=== PATIENT | male | born 1965 | race Caucasian/White ===

== ENCOUNTER → 2016-10-20 | Outpatient (CLI) | payer OTHER ==
--- NOTE | 2016-10-20 11:06 | XR ---
EXAMINATION TYPE: 2 views bilateral forearms. 4 views bilateral wrists. DATE OF EXAM: 10/20/2016 COMPARISON: NONE HISTORY: 50-year-old male complaining of numbness in both arms and wrists for one week, tenosynovitis . FINDINGS: Forearms: No elevation of the fat pads at the elbows. No acute fracture. No periostitis or osteolysis. No soft tissue abnormality identified. Wrist: There is minimal osteoarthritic change at the base of the thumbs on both sides. The radiocarpal and d istal radioulnar joints as well as the midcarpal compartments appear intact. No acute fracture, sublu xation, or dislocation. IMPRESSION: Bilateral forearms and wrists without acute osseous abnormality seen. Minimal degenerative spurring a t the base of the thumbs.
== END | disposition home or self-care (01) ==
LOC: RADXRMAIN 10:26
PROVIDERS: ATTEND Emergency Medicine
DX: M25.841 Other specified joint disorders, right hand (principal); M25.842 Other specified joint disorders, left hand; M65.832 Other synovitis and tenosynovitis, left forearm; M77.12 Lateral epicondylitis, left elbow; M77.11 Lateral epicondylitis, right elbow

== ENCOUNTER 2017-02-04 10:11 | Day surgery (SDC) | payer BC ==
[2017-01-28 10:46] VITALS: BMI 28.1
--- NOTE | 2017-02-03 22:01 | HP ---
HISTORY AND PHYSICAL CHIEF COMPLAINT: Left hand pain and numbness. HISTORY OF PRESENT ILLNESS: The patient is a 51-year-old male who presents with progressive left hand pain and numbness that has worsened over the past 6 to 7 months. He notes numbness involving his thumb, index, middle, and ring finger. He notes weakness with gripping and grasping. He is having night symptoms. He has tried previous bracing and anti- inflammatories with only partial temporary relief. PAST MEDICAL HISTORY: Otherwise negative. PAST SURGICAL HISTORY: Significant for hernia repair and recent right carpal tunnel release. CURRENT MEDICATIONS: None. ALLERGIES: He denies drug allergies. FAMILY HISTORY: Negative. SOCIAL HISTORY: Negative for current tobacco or alcohol use. REVIEW OF SYSTEMS: Sixteen point review of systems otherwise reviewed and is noncontributory. PHYSICAL EXAMINATION: On examination, the patient is approximately 5 foot 8, 185 pounds, of mesomorphic habitus. HEENT exam is nonfocal. Neck is supple. He is nontender about the left shoulder and elbow. On examination of his left wrist, he has a positive carpal tunnel compression test. Tinel's is positive over the left carpal canal. Light touch is diminished diffusely in the left ring finger and and thumb. Adductor pollicis brevis strength is 4/5 on the left. EMG report showed median motor latency of the carpal canal, 6.45 on the left, with sensor latency 4.75. IMPRESSION: Left carpal tunnel syndrome, symptomatic. RECOMMENDATIONS: I talked to the patient at length regarding his treatment options. At this point, he is having persistence/worsening of symptoms despite conservative measures. After thorough discussion, he opts to proceed with surgery. We will plan to proceed with left carpal tunnel release, likely as an outpatient procedure, utilizing local anesthetic and IV sedation. Risks and benefits were discussed at length in layman's terms. MMODL / IJN: [id number] /
[~2017-02-04 10:11] MED LIST: HYDROmorphone 0.5 MG/0.5 ML SYRINGE IVP PRN; LACTATED RINGERS 1,000 ML IV SCH; ONDANSETRON 4 MG/2 ML VIAL IVP PRN; ceFAZolin IN SWFI 2 GM/20 ML SYRINGE IVP ONE
[2017-02-04 10:26] VITALS: TEMP 97.9
[2017-02-04] MEDS ORDERED: LIDOCAINE 1% 20 ML VIAL (10MG/ML) FOR IV START INTRADERMA ONE (10:31)
[2017-02-04] MEDS ORDERED: BUPIVACAINE (PF) 0.25% 30 ML VIAL SQ ONE ×2 (11:03→11:22)
[2017-02-04] MEDS ORDERED: MIDAZOLAM 2 MG/2 ML VIAL ONE (11:09)
[2017-02-04] MEDS ORDERED: PROPOFOL 10 MG/ML 20 ML VIAL IV ONE (11:09)
[2017-02-04] MEDS ORDERED: fentaNYL (PF) 50 MCG/ML 2 ML AMP ONE (11:09)
--- NOTE | 2017-02-04 11:42 | P.OP ---
Date of Procedure: 02/04/17 Preoperative Diagnosis: left carpal tunnel syndrome-symptomatic Postoperative Diagnosis: Same Procedure(s) Performed: Left carpal tunnel release Anesthesia: MAC, local Surgeon: Lucas Mulligan Estimated Blood Loss (ml): 1 Pathology: none sent Condition: stable Disposition: PACU Indications for Procedure: The patient is a 51-year-old gentleman who presents with progressive left hand numbness secondary to carpal tunnel syndrome despite conservative measures. A discussion of the risks and benefits of continued conservative measures versus operative intervention was made with patient. He opted to proceed with surgery. Operative risks to include infection, neurovascular injury, development of blood clots, possible incomplete resolution of symptoms, possible recurrence of symptoms and need for subsequent procedures was discussed. Informed consent was obtained. Operative Findings: As below Description of Procedure: The patient was brought to the operating room, and after induction of IV sedation the left upper extremity was prepped and draped in normal fashion. The tourniquet was inflated to 50 mmHg. The proposed incision site was outlined skin marker in line with the radial aspect the fourth ray extending from the volar wrist crease distally 2-1/2 cm. 10 mL of quarter percent plain Marcaine was injected. The skin incision was then made. The skin was incised sharply. The cutaneous tissues were divided sharply. The superficial palmar fascia was identified and split in line with the skin incision. The transverse carpal ligament was identified and transected under visualization distally to level the palmar fat pad. Proximally it was taken the level of the volar wrist crease. A plane above and below the transverse carpal ligament was then bluntly developed with tenotomies. The confluence of the distal forearm fascia and the transverse carpal ligament was then transected under direct visualization proximally with the tines pointed in the ulnar direction. I felt I had adequate proximal release. Neural lysis was not performed. The wound was irrigated normal saline. The skin was reapproximated with simple 3-0 nylon sutures. A sterile dressing was applied. The tourniquet was deflated with less than 15 minutes total tourniquet time. The patient was awoken from sedation and transferred to recovery room in good condition. Blood loss was estimated at 1 mL. No complications were incurred. Sponge and needle counts were correct at the end the case.
[2017-02-04 11:47] VITALS: RESP 18
[2017-02-04 12:22] VITALS: BP 113/76; PULSE 67
== END 2017-02-04 12:35 | disposition home or self-care (01) ==
LOC: OR 10:11
PROVIDERS: ATTEND Orthopaedic Surgery
DX: G56.02 Carpal tunnel syndrome, left upper limb (principal)
CPT/HCPCS: 64721; J2250; J2405; J3010; J2704

== ENCOUNTER → 2018-08-11 | Outpatient (CLI) | payer BC ==
[2018-08-11 17:17] LABS: Basophils % (A) 0 %; Eosinophils # (A) 0.1 k/uL (0-0.7); Eosinophils % (A) 2 %; HCT 46.5 % (39.0-53.0); HGB 15.5 gm/dL (13.0-17.5); Lymphocytes # (A) 1.4 k/uL (1.0-4.8); Lymphocytes % (A) 18 %; MCH 30.1 pg (25.0-35.0); MCHC 33.2 g/dL (31.0-37.0); MCV 90.6 fL (80.0-100.0); Mean Platelet Volume 7.6; Monocytes # (A) 0.5 k/uL (0-1.0); Monocytes % (A) 7 %; Neutrophils # (A) 5.5 k/uL (1.3-7.7); Neutrophils % (A) 72 %; Platelet Count 182 k/uL (150-450); RBC 5.13 m/uL (4.30-5.90); RDW 13.2 % (11.5-15.5); WBC 7.7 k/uL (3.8-10.6)
[2018-08-11 19:34] LABS: Erythrocyte Sedimentation Rate 2 mm/hr (0-15)
[2018-08-11 22:17] LABS: Rheumatoid Factor 6 IU/mL (0-15)
[2018-08-11 22:32] LABS: C Reactive Protein <0.4 mg/dL (0.0-0.8); Uric Acid 5.6 mg/dL (3.7-8.7)
[2018-08-11 22:52] LABS: Anti-DNA, DS unit <1.0 IU/mL; DNA Double-Stranded NEGATIVE (NEGATIVE)
[2018-08-14 11:22] LABS: HLA B27 NEGATIVE
== END | disposition home or self-care (01) ==
LOC: LABWHC1 17:02
PROVIDERS: ATTEND Orthopaedic Surgery
DX: M25.50 Pain in unspecified joint (principal)
CPT/HCPCS: 36415; 84550; 85025; 85652; 86038; 86140; 86225; 86431; 86812

== ENCOUNTER → 2019-06-13 | Outpatient (CLI) | payer OTHER | END | disposition home or self-care (01) | LOC: RADNMMAIN 09:05 | DX: Z53.9 Procedure and treatment not carried out, unspecified reason (principal) ==

== ENCOUNTER → 2019-06-15 | Outpatient (CLI) | payer OTHER ==
--- NOTE | 2019-06-15 10:32 | P.STRESS ---
- Stress Test Note Stress Test Results/Findings: Exam Performed: stress test Exam Date: 06/15/19 Reason for Exam: ABN ECG Height: 5 ft 8 in Weight: 93 kg Protocol: GRANT Stage: 3 Duration of Exercise: 9:00 Resting Heart Rate: 90 Resting Blood Pressure: 154/111 Maximum Achieved Heart Rate: 148 Maximum Achieved Blood Pressure: 198/75 85% PMHR: 143 100% PMHR: 168 METS: 10.3 Technologist Comment: Stress Test Results/Findings: This is a 53-year-old gentleman being evaluated for cardiac status because of abnormal EKG and family history of ischemic heart disease. Stress data: Baseline EKG showed a sinus rhythm with normal MI interval, QRS duration with T-wave inversions in inferior leads. Patient walked on the Grant protocol for 9 minutes achieving a maximum heart rate of 148 with a blood pressure 196/87. His blood pressure at rest was 154/111 with a pulse of 90. EKGs taken during and after exercise showed more prominence ST-T abnormalities in inferolateral leads, compared to the baseline. Patient did not experience any chest pain. No arrhythmias are noted. Final impression: #1. Nondiagnostic stress test because of baseline EKG abnormalities. #2. Patient did not experience any chest pain #3. No arrhythmias are noted. #4. Patient's exercise capacity is fair. #5. Patient does have hypertension which could be situational.
== END | disposition home or self-care (01) ==
LOC: RADNMMAIN 07:42
DX: R94.31 Abnormal electrocardiogram [ECG] [EKG] (principal)
CPT/HCPCS: 93017

== ENCOUNTER 2019-09-11 05:53 | Observation (INO) | payer OTHER, BC ==
[2019-09-11] MEDS ORDERED: SODIUM CHLORIDE 0.9% 1,000 ML IV STA ×2 (06:09)
--- NOTE | 2019-09-11 06:15 | ED ---
Chest Pain HPI - General Chief Complaint: Chest Pain Stated Complaint: Chest Pain Time Seen by Provider: 09/11/19 06:00 Source: patient, RN notes reviewed, old records reviewed Mode of arrival: ambulatory Limitations: no limitations - History of Present Illness Initial Comments: Patient has a 53-year-old male with a history of recent cervical spinal fusion on June 23 presents emergency Department today with waking up with onset of sharp stabbing chest pain. He reports that he had a sharp episode of chest pain that woke him up this morning and had another duller episode upon arrival to the emergency department. He states while he has been in the exam room the chest pain has now diminished. Patient states that he is not on any blood thinning me dications. He reports that he has had no significant shortness of breath or coughing. Patient states that he has a family history of heart disease, no prior personal history. Since his neck surgery he's noticed that he's had a slightly increased heart rate and blood pressure is been mildly elevated. He wonders if this is due to stimulation of the vagus nerve post surgery. Patient states no nausea or vomiting. Denies any abdominal pain. He is a nonsmoker. - Related Data Home Medications Medication Instructions Recorded Confirmed Ascorbic Acid [Vitamin C] 500 mg PO DAILY 09/11/19 09/11/19 Bc Powder 1 pack PO DAILY PRN 09/11/19 09/11/19 Allergies Allergy/AdvReac Type Severity Reaction Status Date / Time No Known Allergies Allergy Verified 09/11/19 07:21 Review of Systems ROS Statement: Those systems with pertinent positive or pertinent negative responses have been documented in the HPI. ROS Other: All systems not noted in ROS Statement are negative. EKG Findings - EKG Comments: EKG Findings:: EKG performed at 6:01 AM shows normal sinus rhythm normal EKG. Ventricular rate of 67 bpm.. Intervals 126 ms. QRS duration is 116 ms. QT QTc is 404/426. Past Medical History Past Medical History: No Reported History History of Any Multi-Drug Resistant Organisms: None Reported Past Surgical History: Hernia Repair, Orthopedic Surgery Additional Past Surgical History / Comment(s): [facility], neck fusion 2019 Past Anesthesia/Blood Transfusion Reactions: No Reported Reaction Past Psychological History: No Psychological Hx Reported Past Alcohol Use History: Daily Past Drug Use History: None Reported - Past Family History Mother Family Medical History: No Reported History General Exam - General Exam Comments Initial Comments: This is a 53-year-old male. Alert and oriented 3. No significant distress. Limitations: no limitations General appearance: alert, in no apparent distress Head exam: Present: atraumatic, normocephalic, normal inspection Eye exam: Present: normal appearance, PERRL, EOMI. Absent: scleral icterus, conjunctival injection, periorbital swelling ENT exam: Present: normal exam, mucous membranes moist Neck exam: Present: normal inspection. Absent: tenderness, meningismus, lymphadenopathy Respiratory exam: Present: normal lung sounds bilaterally. Absent: respiratory distress, wheezes, rales, rhonchi, stridor Cardiovascular Exam: Present: regular rate, normal rhythm, normal heart sounds. Absent: systolic murmur, diastolic murmur, rubs, gallop, clicks GI/Abdominal exam: Present: soft, normal bowel sounds. Absent: distended, tenderness, guarding, rebound, rigid Extremities exam: Present: normal inspection, full ROM, normal capillary refill. Absent: tenderness, pedal edema, joint swelling, calf tenderness Back exam: Present: normal inspection Neurological exam: Present: alert, oriented X3, CN II-XII intact Psychiatric exam: Present: normal affect, normal mood Skin exam: Present: warm, dry, intact, normal color. Absent: rash Course Vital Signs 09/11/19 09/11/19 05:58 07:05 Temperature 98.6 F Pulse Rate 66 72 Respiratory 16 18 Rate Blood Pressure 153/57 113/94 O2 Sat by Pulse 98 97 Oximetry Chest Pain [facility] Patient is a 53-year-old male presents today with onset of chest pain that woke him up this morning. Patient reports he had indeterminate stress test done in June. He does take aspirin daily. Upon arrival he reports chest pain has improved. Patient initial lab work including troponin are negative. With recent history surgical history Patient had CT chest angiogram which is negative for PE. At this time Patient will be admitted at this time for a consult to cardiology for concern for unstable angina. Disposition Clinical Impression: Unstable angina Disposition: ADMITTED IP TO THIS HOSP Condition: Good Instructions (If sedation given, give patient instructions): Chest Pain (ED) Is patient prescribed a controlled substance at d/c from ED?: No Referrals: [facility],Clinic [Primary Care Provider] - 1-2 days Time of Disposition: 07:55
[2019-09-11 06:19] LABS: Basophils # (A) 0.1 k/uL (0-0.2); Basophils % (A) 1 %; Eosinophils # (A) 0.2 k/uL (0-0.7); Eosinophils % (A) 3 %; HCT 45.3 % (39.0-53.0); HGB 14.8 gm/dL (13.0-17.5); Lymphocytes % (A) 25 %; MCH 28.8 pg (25.0-35.0); MCHC 32.7 g/dL (31.0-37.0); Mean Platelet Volume 8.2; Monocytes # (A) 0.5 k/uL (0-1.0); Monocytes % (A) 6 %; Neutrophils % (A) 63 %; Platelet Count 188 k/uL (150-450); RBC 5.15 m/uL (4.30-5.90); RDW 13.4 % (11.5-15.5); WBC 7.9 k/uL (3.8-10.6)
[2019-09-11 06:28] LABS: ALT 19 U/L (4-49); AST 24 U/L (17-59); African American GFR (CKD) >90 (>60 ml/min/1.73 sqM); Albumin 4.3 g/dL (3.5-5.0); Alkaline Phosphatase 92 U/L (38-126); Amylase 62 U/L (30-110); Anion Gap 7 mmol/L; Blood Urea Nitrogen 15 mg/dL (9-20); Calcium 9.1 mg/dL (8.4-10.2); Carbon Dioxide 25 mmol/L (22-30); Chloride 107 mmol/L (98-107); Glucose 100 mg/dL (74-99); Magnesium 1.9 mg/dL (1.6-2.3); Non-African American GFR(CKD) >90 (>60 ml/min/1.73 sqM); Potassium 4.3 mmol/L (3.5-5.1); Sodium 139 mmol/L (137-145); Total Bilirubin 0.5 mg/dL (0.2-1.3); Total Protein 7.3 g/dL (6.3-8.2)
[2019-09-11 06:32] LABS: D-Dimer 0.54 mg/L FEU (<0.60); Partial Thromboplastin Time 24.8 sec (22.0-30.0); Prothrombin Time 10.1 sec (9.0-12.0)
--- NOTE | 2019-09-11 06:33 | XR ---
EXAMINATION TYPE: XR chest 2V DATE OF EXAM: 09/11/2019 COMPARISON: NONE HISTORY: Chest pain. TECHNIQUE: Frontal and lateral views of the chest are obtained. FINDINGS: There is some chronic parenchymal changes bilaterally without suspicious focal air space o pacity, pleural effusion, or pneumothorax seen. The cardiac silhouette size is within normal limits. Partial visualization of surgical change to the cervical thoracic spine. IMPRESSION: No acute cardiopulmonary process.
--- NOTE | 2019-09-11 07:25 | CT ---
EXAMINATION TYPE: CT chest angio for PE DATE OF EXAM: 09/11/2019 COMPARISON: Chest x-ray earlier today. HISTORY: PE suspected. Shortness of breath and chest pain. CT DLP: 512.7 mGycm. Automated Exposure Control for Dose Reduction was Utilized. CONTRAST: CTA scan of the thorax is performed without and with IV Contrast, patient injected with 100 ml mL of Isovue 370, pulmonary embolism protocol. MIP Images are created on CT scanner and reviewed. FINDINGS: LUNGS: The lungs are grossly clear, there is no concerning parenchymal mass or nodule identified. T here is no pleural effusion or pneumothorax seen. The tracheobronchial tree is patent. MEDIASTINUM: There is satisfactory enhancement of the pulmonary artery and its branches, there is no CT evidence for pulmonary embolism. Satisfactory enhancement of the thoracic aorta without aneurysm or dissection. There are no greater than 1 cm hilar or mediastinal lymph nodes. No cardiomegaly or pericardial effusion is seen. OTHER: Slight underlying scoliotic curvature. Partial visualization of surgical change in the upper t horacic spine. Small degree of subareolar bilateral gynecomastia. IMPRESSION: No CTA evidence for acute pulmonary embolism. No suspicious acute pulmonary process.
[2019-09-11] MEDS ORDERED: HEPARIN SODIUM,PORCINE 5,000 UNIT/ML 1 ML VIAL IV ONE (07:51)
[2019-09-11] MEDS ORDERED: NITROGLYCERIN SL TABS 0.4 MG TAB SUBLINGUAL PRN (07:51)
[2019-09-11] MEDS ORDERED: HEPARIN SOD,PORK IN 0.45% NACL 25,000 UNIT in 0.45% NACL 1 250ML.BAG IV SCH (08:00)
--- NOTE | 2019-09-11 13:12 | P.CRDCN ---
History of Present Illness History of present illness: HISTORY OF PRESENTING ILLNESS This is a pleasant 53-year-old male past medical history significant for gastroesophageal reflux disease.. He recently established in the office with Dr. Hay secondary to an inconclusive exercise stress test. In June 2019 he underwent an exercise stress test for preoperative evaluation that was inconclusive secondary to baseline EKG abnormalities however he exercised for f 9 minutes. At 9 minutes of exercise he had no arrhythmias or chest discomfort. He is scheduled to undergo a different modality of stress testing in the office September [address] Hay. We have been asked to see in consultation for chest pain. He states he woke up this morning while driving experienced discomfort in his chest described as sharp and stabbing pain in the left precordial region with radiation at times to the midsternal region. The pain was persistent and slowly start to become dull in nature. Was not respirophasic here not related to activity or exertion. He had no associated shortness of breath, dizziness, palpitations, nausea, vomiting or diaphoresis. DIAGNOSTICS EKG reveals sinus mechanism with nonspecific T-wave abnormalities in inferior leads. Chest xray negative for an acute cardiopulmonary process. Laboratory reviewed, CBC unremarkable, d-dimer 0.54, sodium 139, potassium 4.3, creatinine 0.91, cardiac enzymes negative 2, NT proBNP 29. He takes no daily cardiac medications. REVIEW OF SYSTEMS At the time of my exam: CONSTITUTIONAL: Denies fever or chills. CARDIOVASCULAR: Denies chest pain, shortness of breath, orthopnea, PND or palpitations. RESPIRATORY: Denies cough. GASTROINTESTINAL: Denies abdominal pain, diarrhea, constipation, nausea or vomiting. MUSCULOSKELETAL: Denies myalgias. NEUROLOGIC: Denies numbness, tingling or weakness. ENDOCRINE: Denies fatigue, weight change, polydipsia or polyurina. GENITOURINARY: Denies burning, hematuria or urgency with micturation. HEMATOLOGIC: Denies history of anemia or bleeding. PHYSICAL EXAMINATION Blood pressure 149/97 heart rate 47 afebrile and maintaining oxygen saturation on room air. CONSTITUTIONAL: No apparent distress. HEENT: Head is normocephalic. Pupils are equal, round. Sclerae anicteric. Mucous membranes of the mouth are moist. No JVD. No carotid bruit. Neck brace in place. CHEST EXAMINATION: Lungs are clear to auscultation. No chest wall tenderness is noted on palpation or with deep breathing. HEART EXAMINATION: Regular rate and rhythm. S1, S2 heard. No murmurs, gallops or rub. ABDOMEN: Soft, nontender. Positive bowel sounds. EXTREMITIES: 2+ peripheral pulses, no lower extremity edema and no calf tenderness. NEUROLOGIC EXAMINATION: Patient is awake, alert and oriented x3. ASSESSMENT Chest pain, atypical. An acute coronary event has been ruled out. PLAN Pain is atypical to be related to angina. An acute coronary event has been ruled out. Discontinue heparin infusion. We will proceed with a dobutamine stress echocardiogram tomorrow. Thank you kindly for this consultation. Nurse Practitioner note has been reviewed, I agree with a documented findings and plan of care. Patient was seen and examined. Past Medical History Past Medical History: GERD/Reflux, Osteoarthritis (OA) Additional Past Medical History / Comment(s): Pt states since cervical surgery in Jun, 2019 he has had some upper abdominal pain/balance issues, vertigo. History of Any Multi-Drug Resistant Organisms: None Reported Past Surgical History: Hernia Repair, Orthopedic Surgery Additional Past Surgical History / Comment(s): 06/24/19 cervical fusion C2-T2 with hardware done at [facility]-limited ROM with neck, bilateral carpal tunnel releases, L hand thumb tendon surgery, umbilical hernia repair, colonoscopy Past Anesthesia/Blood Transfusion Reactions: No Reported Reaction Smoking Status: Never smoker - Past Family History Mother Family Medical History: Cancer Additional Family Medical History / Comment(s): Pacemaker, colon cancer, smoker. Medications and Allergies Home Medications Medication Instructions Recorded Confirmed Type Ascorbic Acid [Vitamin C] 500 mg PO DAILY 09/11/19 09/11/19 History Bc Powder 1 pack PO DAILY PRN 09/11/19 09/11/19 History Allergies Allergy/AdvReac Type Severity Reaction Status Date / Time No Known Allergies Allergy Verified 09/11/19 07:21 Physical Exam Vitals: Vital Signs Temp Pulse Resp BP Pulse Ox 09/11/19 12:46 79 14 98 09/11/19 10:14 77 18 149/97 96 09/11/19 07:05 72 18 113/94 97 09/11/19 05:58 98.6 F 66 16 153/57 98 Intake and Output 09/10/19 09/11/19 09/11/19 22:59 06:59 14:59 Other: Weight 90.718 kg 90.718 kg Results 09/11/19 06:11 09/11/19 06:11 Cardiac Enzymes 09/11/19 09/11/19 09/11/19 Range/Units 06:11 06:11 09:24 AST 24 (17-59) U/L Troponin I <0.012 <0.012 (0.000-0.034) ng/mL Coagulation 09/11/19 Range/Units 06:11 PT 10.1 (9.0-12.0) sec APTT 24.8 (22.0-30.0) sec CBC 09/11/19 Range/Units 06:11 WBC 7.9 (3.8-10.6) k/uL RBC 5.15 (4.30-5.90) m/uL Hgb 14.8 (13.0-17.5) gm/dL Hct 45.3 (39.0-53.0) % Plt Count 188 (150-450) k/uL Comprehensive Metabolic Panel 09/11/19 Range/Units 06:11 Sodium 139 (137-145) mmol/L Potassium 4.3 (3.5-5.1) mmol/L Chloride 107 (98-107) mmol/L Carbon Dioxide 25 (22-30) mmol/L BUN 15 (9-20) mg/dL Creatinine 0.91 (0.66-1.25) mg/dL Glucose 100 H (74-99) mg/dL Calcium 9.1 (8.4-10.2) mg/dL AST 24 (17-59) U/L ALT 19 (4-49) U/L Alkaline Phosphatase 92 (38-126) U/L Total Protein 7.3 (6.3-8.2) g/dL Albumin 4.3 (3.5-5.0) g/dL Current Medications Generic Name Dose Route Start Last Admin Trade Name Freq PRN Reason Stop Dose Admin Aspirin 81 mg 09/12/19 09:00 Aspirin PO DAILY WILBERT Sodium Chloride 1,000 mls @ 100 mls/hr 09/11/19 06:09 09/11/19 06:21 Saline 0.9% IV 09/11/19 16:08 100 mls/hr .Q10H STA Administration Dobutamine HCl/Dextrose 500 mg 250 mls @ 27.215 mls/hr 09/12/19 06:00 / IV Solution IV 09/12/19 15:11 .Q9H12M ONE Protocol 10 MCG/KG/MIN Nitroglycerin 0.4 mg 09/11/19 07:51 Nitrostat SUBLINGUAL Q5M PRN Chest Pain Intake and Output 09/10/19 09/11/19 09/11/19 22:59 06:59 14:59 Other: Weight 90.718 kg 90.718 kg Patient Weight 09/12/19 06:59 Weight 90.718 kg 09/11/19 06:11 09/11/19 06:11
--- NOTE | 2019-09-11 16:02 | P.HPIM ---
History of Present Illness 53-year-old male of chest pain which lasted the for about 10 minutes today morning moderate severity. Patient had an inconclusive exercise stress test in month of June. Patient has nonspecific some nonspecific T-wave abnormalities p atient just pain in his right side of the chest sharp in nature and nonradiating no associated shortness of breath lightheadedness. She denied any cough or chest pain is nonpleuritic not associated with food. Troponins were negative. Patient had fusion of her cervical vertebrae in month of June. Patient the was complaining of episodes of tachycardia as an outpatient. Although patient doesn't have any heartburn abnormalities here during this hospitalization until now. Review of Systems REVIEW OF SYSTEMS: CONSTITUTIONAL: No fever, no malaise, no fatigue. HEENT: No recent visual problems or hearing problems. Denied any sore throat. CARDIOVASCULAR: No orthopnea, PND, no palpitations, no syncope. PULMONARY: No shortness of breath, no cough, no hemoptysis. GASTROINTESTINAL: No diarrhea, no nausea, no vomiting, no abdominal pain. NEUROLOGICAL: No headaches, no weakness, no numbness. HEMATOLOGICAL: Denies any bleeding or petechiae. GENITOURINARY: Denies any burning micturition, frequency, or urgency. MUSCULOSKELETAL/RHEUMATOLOGICAL: Denies any joint pain, swelling, or any muscle pain. ENDOCRINE: Denies any polyuria or polydipsia. The rest of the 14-point review of systems is negative. Past Medical History Past Medical History: GERD/Reflux, Osteoarthritis (OA) Additional Past Medical History / Comment(s): Pt states since cervical surgery in Jun, 2019 he has had some upper abdominal pain/balance issues, vertigo. History of Any Multi-Drug Resistant Organisms: None Reported Past Surgical History: Hernia Repair, Orthopedic Surgery Additional Past Surgical History / Comment(s): 06/24/19 cervical fusion C2-T2 with hardware done at [facility]-limited ROM with neck, bilateral carpal tunnel releases, L hand thumb tendon surgery, umbilical hernia repair, colonoscopy Past Anesthesia/Blood Transfusion Reactions: No Reported Reaction Smoking Status: Never smoker - Past Family History Mother Family Medical History: Cancer Additional Family Medical History / Comment(s): Pacemaker, colon cancer, smoker. Medications and Allergies Home Medications Medication Instructions Recorded Confirmed Type Ascorbic Acid [Vitamin C] 500 mg PO DAILY 09/11/19 09/11/19 History Bc Powder 1 pack PO DAILY PRN 09/11/19 09/11/19 History Allergies Allergy/AdvReac Type Severity Reaction Status Date / Time No Known Allergies Allergy Verified 09/11/19 07:21 Physical Exam Vitals: Vital Signs Temp Pulse Resp BP Pulse Ox 09/11/19 14:57 98.9 F 74 18 140/100 97 09/11/19 13:42 71 14 140/95 100 09/11/19 12:46 79 14 98 09/11/19 10:14 77 18 149/97 96 09/11/19 07:05 72 18 113/94 97 09/11/19 05:58 98.6 F 66 16 153/57 98 Intake and Output 09/11/19 09/11/19 09/11/19 06:59 14:59 22:59 Other: Weight 90.718 kg 90.718 kg PHYSICAL EXAMINATION: GENERAL: The patient is alert and oriented x3, not in any acute distress. Well developed, well nourished. Patient is wearing cervical collar HEENT: Pupils are round and equally reacting to light. EOMI. No scleral icterus. No conjunctival pallor. Normocephalic, atraumatic. No pharyngeal erythema. No thyromegaly. CARDIOVASCULAR: S1 and S2 present. No murmurs, rubs, or gallops. PULMONARY: Chest is clear to auscultation, no wheezing or crackles. ABDOMEN: Soft, nontender, nondistended, normoactive bowel sounds. No palpable organomegaly. MUSCULOSKELETAL: No joint swelling or deformity. EXTREMITIES: No cyanosis, clubbing, or pedal edema. NEUROLOGICAL: Gross neurological examination did not reveal any focal deficits. SKIN: No rashes. Results CBC & Chem 7: 09/11/19 06:11 09/11/19 06:11 Labs: Abnormal Lab Results - Last 24 Hours (Table) 09/11/19 Range/Units 06:11 Glucose 100 H (74-99) mg/dL Thrombosis Risk Factor Assmnt - Choose All That Apply Any of the Below Risk Factors Present?: Yes Each Factor Represents 1 point: Age 41-60 years, Obesity (BMI >25) Other Risk Factors: No Other congenital or acquired thrombophilia - If yes, enter type in comment: No Thrombosis Risk Factor Assessment Total Risk Factor Score: 2 Thrombosis Risk Factor Assessment Level: Low Risk Assessment and Plan Plan: -Chest pain: We'll rule out a concurrent syndromes and unstable angina but patient chest pain is atypical probably musculoskeletal may be coming from the neck. -Rule out essential hypertension patient has episodes of elevated blood pressure because of which she is concerned about essential hypertension although patient has a blood pressure readings that time showed systolics around 115. Because of which I do not believe patient has essential hypertension but will monitor
[2019-09-12 03:49] LABS: Cholesterol 235 mg/dL (<200); HDL Cholesterol 42 mg/dL (40-60); LDL Cholesterol,Calculated 155 mg/dL (0-99); Triglycerides 191 mg/dL (<150)
[2019-09-12 05:11] VITALS: PULSE 74; TEMP 97.7
[2019-09-12] MEDS ORDERED: DOBUTamine DRIP for NUC MED 500 MG in DEXTROSE/WATER 1 250ML.BAG IV ONE (07:00)
[2019-09-12] MEDS ORDERED: ASPIRIN 81 MG PO SCH (09:00)
[2019-09-12] MEDS ORDERED: ASPIRIN 325 MG TAB PO SCH (09:00)
[2019-09-12 09:16] VITALS: BP 140/88; RESP 18
--- NOTE | 2019-09-12 12:48 | P.PN ---
Subjective HISTORY OF PRESENTING ILLNESS This is a pleasant 53-year-old male past medical history significant for gastroesophageal reflux disease. He has had no further symptoms of chest pain. Blood pressure 140/88 heart rate 74 afebrile and maintaining oxygen saturation on room air. Laboratory data reviewed, cardiac enzymes negative x3, LDL 155, HDL 42. PHYSICAL EXAMINATION CONSTITUTIONAL: No apparent distress. HEENT: Head is normocephalic. Pupils are equal, round. Sclerae anicteric. Mucous membranes of the mouth are moist. No JVD. No carotid bruit. Neck brace in place. CHEST EXAMINATION: Lungs are clear to auscultation. No chest wall tenderness is noted on palpation or with deep breathing. HEART EXAMINATION: Regular rate and rhythm. S1, S2 heard. No murmurs, gallops or rub. EXTREMITIES: 2+ peripheral pulses, no lower extremity edema and no calf tenderness. ASSESSMENT Chest pain, atypical. An acute coronary event has been ruled out. PLAN [place] stress test is negative for inducible ischemia. Initiate atorvastatin 40 mg daily and follow up CMP in 3 days. Rx sent to his pharmacy for meds and to nurses station for lab work. Follow up with Dr. Hay upon discharge. Nurse Practitioner note has been reviewed, I agree with a documented findings and plan of care. Patient was seen and examined. Objective - Vital Signs Vital signs: Vital Signs Temp 97.7 F 09/12/19 09:00 Pulse 74 09/12/19 09:00 Resp 18 09/12/19 09:00 BP 140/88 09/12/19 09:00 Pulse Ox 98 09/12/19 09:00 Intake & Output 09/11/19 09/12/19 09/12/19 18:59 06:59 18:59 Intake Total 550 Output Total 540 Balance 10 Weight 90.718 kg 90.72 kg Intake: Intake, IV Titration 550 Amount Sodium Chloride 0.9% 1, 550 000 ml @ 100 mls/hr IV . Q10H STA Rx#:[id number] Output: Urine 540 Other: Voiding Method Toilet Toilet Toilet # Voids 1 1 - Labs CBC & Chem 7: 09/11/19 06:11 09/11/19 06:11 Labs: Abnormal Lab Results - Last 24 Hours (Table) 09/11/19 Range/Units 06:11 Triglycerides 191 H (<150) mg/dL Cholesterol 235 H (<200) mg/dL LDL Cholesterol, Calc 155 H (0-99) mg/dL
--- NOTE | 2019-09-12 13:18 | ECHOS ---
STRESS ECHOCARDIOGRAM LUMASON: Vial INDICATIONS: Chest pain. MEDICATIONS: ASA BASELINE HEART RATE: 74 BASELINE BLOOD PRESSURE: 137/84 MAXIMUM HEART RATE: 149 MAXIMUM BLOOD PRESSURE: 156/75 85% MPHR: 148 100% MPHR: 168 METS: MAXIMUM STAGE REACHED: TOTAL EXERCISE TIME: CLINICAL INFORMATION: History of chest discomfort and abnormal ECG stress test in the past. This is a dobutamine stress echo. He recently had cervical spine surgery and is awaiting a neck brace. Baseline heart rate 74 beats per minute. Baseline blood pressure 137/84 mmHg. Baseline 12-lead ECG shows normal sinus rhythm with normal ST segments and an incomplete right bundle branch block pattern also on the baseline ECG. Patient received dobutamine infusion per protocol. Peak heart rate 149 beats per minute. Normal blood pressure response. With increasing dobutamine infusion doses upsloping ST depression was noted up to 1.5 mm. No arrhythmias noted. No chest discomfort noted. The baseline 2D echo images are suboptimal and Definity contrast was used At baseline, LV size and systolic function were normal. With dobutamine, there was a stepwise increment in overall LV contractility without development of wall motion abnormalities. At recovery, regional global LV systolic function was normal. IMPRESSION: 1. Abnormal ECG during dobutamine infusion with development of a 1.[address] depression with T-wave inversions without any chest discomfort. 2. Excellent augmentation of overall LV contractility on echo images. No echocardiographic evidence for ischemia. MMODL / IJN: [id number] /
--- NOTE | 2019-09-12 14:55 | P.DS ---
Providers Date of admission: 09/11/19 08:39 Attending physician: Cameron Serrano Consults: 09/11/19 07:51 Consult Physician Urgent Consulting Provider: Anson Larios Consult Reason/Comments: Chest pain Do you want consulting provider notified?: Yes Primary care physician: [facility] Course: 53-year-old male of chest pain which lasted the for about 10 minutes today morning moderate severity. Patient had an inconclusive exercise stress test in month of June. Patient has nonspecific some nonspecific T-wave abnormalities patient just pain in his right side of the chest sharp in nature and nonradiating no associated shortness of breath lightheadedness. She denied any cough or chest pain is nonpleuritic not associated with food. Troponins were negative. Patient had fusion of her cervical vertebrae in month of June. Patient the was complaining of episodes of tachycardia as an outpatient. Although patient doesn't have any heartburn abnormalities here during this hospitalization until now. 09/12/2019 We ruled out acute coronary syndromes or pressure patient had a stress test which did not show any inducible ischemia patient is being discharged today. PHYSICAL EXAMINATION: GENERAL: The patient is alert and oriented x3, not in any acute distress. Well developed, well nourished. HEENT: Pupils are round and equally reacting to light. EOMI. No scleral icterus. No conjunctival pallor. Normocephalic, atraumatic. No pharyngeal erythema. No thyromegaly. CARDIOVASCULAR: S1 and S2 present. No murmurs, rubs, or gallops. PULMONARY: Chest is clear to auscultation, no wheezing or crackles. ABDOMEN: Soft, nontender, nondistended, normoactive bowel sounds. No palpable organomegaly. MUSCULOSKELETAL: No joint swelling or deformity. EXTREMITIES: No cyanosis, clubbing, or pedal edema. NEUROLOGICAL: Gross neurological examination did not reveal any focal deficits. SKIN: No rashes. For rest of the medical problems and hospitalization course please refer to my HPI from yesterday Patient Condition at Discharge: Good Plan - Discharge Summary Discharge Rx Participant: No New Discharge Prescriptions: New Atorvastatin [Lipitor] 40 mg PO HS #90 tab No Action Ascorbic Acid [Vitamin C] 500 mg PO DAILY Bc Powder 1 pack PO DAILY PRN PRN Reason: Pain Discharge Medication List Ascorbic Acid [Vitamin C] 500 mg PO DAILY 09/11/19 [History] Bc Powder 1 pack PO DAILY PRN 09/11/19 [History] Atorvastatin [Lipitor] 40 mg PO HS #90 tab 09/12/19 [Rx] Follow up Appointment(s)/Referral(s): Karlos Hay MD [STAFF PHYSICIAN] - 10/18/19 3:15 pm [facility],Clinic [Primary Care Provider] - 1-2 days Ambulatory/Diagnostic Orders: Comprehensive Metabolic Panel [LAB.AMB] Time Frame: 3 Days, Location: None Selected Patient Instructions/Handouts: Chest Pain (GEN), Hyperlipidemia (GEN) Discharge Disposition: HOME SELF-CARE
[2019-09-12] MEDS ORDERED: ATORVASTATIN 40 MG TAB PO SCH (21:00)
== END 2019-09-12 14:26 | disposition home or self-care (01) ==
LOC: EC 05:53 → 3NCARDOBS 08:39
PROVIDERS: ADMIT Hospitalist; ATTEND Hospitalist
DX: R07.89 Other chest pain (principal); R00.0 Tachycardia, unspecified; R94.31 Abnormal electrocardiogram [ECG] [EKG]; R03.0 Elevated blood-pressure reading, without diagnosis of hypertension; R07.2 Precordial pain; K21.9 Gastro-esophageal reflux disease without esophagitis; M19.90 Unspecified osteoarthritis, unspecified site; E66.9 Obesity, unspecified; Z68.30 Body mass index [BMI] 30.0-30.9, adult; Z03.818 Encounter for observation for suspected exposure to other biological agents ruled out; Z98.1 Arthrodesis status; Z87.19 Personal history of other diseases of the digestive system; Z98.890 Other specified postprocedural states; Z86.69 Personal history of other diseases of the nervous system and sense organs; Z79.82 Long term (current) use of aspirin; Z87.39 Personal history of other diseases of the musculoskeletal system and connective tissue; Z82.49 Family history of ischemic heart disease and other diseases of the circulatory system; Z80.0 Family history of malignant neoplasm of digestive organs; Z81.2 Family history of tobacco abuse and dependence
CPT/HCPCS: 93005 ×2; 96361 ×3; 96376; 96365; 96366; 99285; 36415; 93351; 85379; 83880; 80061; 80053; 82150; 83690; 83735; 84484; 85025; 85610; 85730; 71046; 71275; G0378 ×2; U0003; J1250; J1644 ×2; Q9950; Q9967

== ENCOUNTER → 2019-09-14 | Outpatient (CLI) | payer OTHER ==
--- NOTE | 2019-09-14 23:22 | MR ---
EXAMINATION TYPE: MR lumbar spine wo con DATE OF EXAM: 09/14/2019 COMPARISON: None HISTORY: Low back pain into rt leg Multiplanar multiecho imaging of the lumbar spine was performed with no contrast. There is lumbar dextroscoliotic deformity. There is narrowing of disc spaces throughout the lumbar sp ine with spurring of the endplates. There is some mild hypertrophic facet arthropathy and mild latera l recess stenosis at L3-4. There is rudimentary disc at S1-S2. There is no compression fracture. Ther e is no lumbar paraspinal mass. Lumbar nerve roots have normal signal pattern. There is no significan t stenosis of the spinal canal. There is a large hypertrophic anterior osteophyte and anterior disc h erniation at L5-S1. 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 I do not see any resulting spinal stenosis. There is no focal bon e destruction. There is some narrowing of the L5-S1 right side neural foramen due to facet arthropath y and disc space narrowing. 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 Right side L5-S1 neural foramina l stenosis. Multilevel spondylotic changes with dextroscoliosis deformity. No acute bony abnormality. No fracture. No spinal stenosis. Large anterior L5-S1 lumbar disc herniation with calcification.
== END | disposition home or self-care (01) ==
LOC: RADMRIMAIN 16:29
PROVIDERS: ATTEND Physician Assistant Medical
DX: M48.061 Spinal stenosis, lumbar region without neurogenic claudication (principal); M51.26 Other intervertebral disc displacement, lumbar region; M47.816 Spondylosis without myelopathy or radiculopathy, lumbar region; M41.86 Other forms of scoliosis, lumbar region; Q76.49 Other congenital malformations of spine, not associated with scoliosis
CPT/HCPCS: 72148

== ENCOUNTER → 2019-09-18 | Outpatient (CLI) | payer OTHER, BC ==
[2019-09-18 16:14] LABS: African American GFR (CKD) 99.8 (60.0-200.0); Albumin 4.5 g/dL (3.80-4.90); Albumin/Globulin Ratio 1.88 (1.60-3.17); Anion Gap 9.7 mmol/L (4.00-12.00); Calcium 9.2 mg/dL (8.7-10.3); Carbon Dioxide 27.3 mmol/L (21.6-31.8); Globulin 2.4 g/dL (1.6-3.3); Non-African American GFR(CKD) 86.2 (60.0-200.0); Potassium 4.2 mmol/L (3.5-5.5); Total Bilirubin 0.6 mg/dL (0.3-1.2); Total Protein 6.9 g/dL (6.2-8.2)
== END | disposition home or self-care (01) ==
LOC: LABWHC1 10:41
PROVIDERS: ATTEND Nurse Practitioner
DX: R00.0 Tachycardia, unspecified (principal)
CPT/HCPCS: 36415; 80053

== ENCOUNTER 2019-11-27 19:48 | Inpatient (IN) | payer OTHER, BC ==
--- NOTE | 2019-11-27 20:07 | ED ---
Recheck HPI - General Chief Complaint: Recheck/Abnormal Lab/Rx Stated Complaint: Eye Problems Time Seen by Provider: 11/27/19 20:02 Source: patient, RN notes reviewed, old records reviewed Mode of arrival: ambulatory Limitations: no limitations - History of Present Illness Initial Comments: This is a 54-year-old male DF for evaluation patient is history of nerve injury cervical fusion. 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 And has at times been admitted for steroids IV, patient presents for similar treatment today. Patient sent DF for evaluation and admission to receive his IV steroids MD Complaint: other (Worsening vision changes) -: days(s) Returns Today for: request for prescription, other (Patient sent to ER from [facility]) Symptoms Since Prior Visit: no new symptoms Associated Symptoms: none - Related Data Home Medications Medication Instructions Recorded Confirmed Ascorbic Acid [Vitamin C] 500 mg PO DAILY 09/11/19 10/27/19 Bc Powder 1 pack PO DAILY PRN 09/11/19 10/27/19 Aspirin [Adult Low Dose Aspirin EC] 81 mg PO HS 10/27/19 10/27/19 amLODIPine [Norvasc] 5 mg PO DAILY 10/27/19 10/27/19 Previous Rx's Medication Instructions Recorded Atorvastatin [Lipitor] 40 mg PO HS #90 tab 09/12/19 Allergies Allergy/AdvReac Type Severity Reaction Status Date / Time No Known Allergies Allergy Verified 11/27/19 20:00 Review of Systems ROS Statement: Those systems with pertinent positive or pertinent negative responses have been documented in the HPI. ROS Other: All systems not noted in ROS Statement are negative. Past Medical History Past Medical History: GERD/Reflux, Osteoarthritis (OA) Additional Past Medical History / Comment(s): Pt states since cervical surgery in Jun, 2019 he has had some upper abdominal pain/balance issues, vertigo. 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, 2019 History of Any Multi-Drug Resistant Organisms: None Reported Past Surgical History: Hernia Repair, Orthopedic Surgery Additional Past Surgical History / Comment(s): 06/24/19 cervical fusion C2-T2 with hardware done at [facility]-limited ROM with neck, bilateral carpal tunnel releases, L hand thumb tendon surgery, umbilical hernia repair, colonoscopy Past Anesthesia/Blood Transfusion Reactions: No Reported Reaction Past Psychological History: No Psychological Hx Reported Smoking Status: Never smoker Past Alcohol Use History: Occasional Past Drug Use History: None Reported - Past Family History Mother Family Medical History: Cancer Additional Family Medical History / Comment(s): Pacemaker, colon cancer, smoker. General Exam Limitations: no limitations General appearance: alert, in no apparent distress Head exam: Present: atraumatic, normocephalic, normal inspection Eye exam: Present: normal appearance, PERRL, EOMI. Absent: scleral icterus, conjunctival injection, periorbital swelling ENT exam: Present: normal exam, mucous membranes moist Neck exam: Present: normal inspection. Absent: tenderness, meningismus, lymphadenopathy Respiratory exam: Present: normal lung sounds bilaterally. Absent: respiratory distress, wheezes, rales, rhonchi, stridor Cardiovascular Exam: Present: regular rate, normal rhythm, normal heart sounds. Absent: systolic murmur, diastolic murmur, rubs, gallop, clicks GI/Abdominal exam: Present: soft, normal bowel sounds. Absent: distended, tenderness, guarding, rebound, rigid Extremities exam: Present: normal inspection, full ROM, normal capillary refill. Absent: tenderness, pedal edema, joint swelling, calf tenderness Back exam: Present: normal inspection Neurological exam: Present: alert, oriented X3, CN II-XII intact Psychiatric exam: Present: normal affect, normal mood Skin exam: Present: warm, dry, intact, normal color. Absent: rash Course Vital Signs 11/27/19 19:58 Temperature 98.5 F Pulse Rate 97 Respiratory 18 Rate Blood Pressure 160/104 O2 Sat by Pulse 98 Oximetry - Reevaluation(s) Reevaluation #1: 11/27/19 21:06 Medical records reviewed 11/27/19 21:06 (examination is reviewed Reevaluation #2: 11/27/19 21:06 Patient will be admitted for IV steroids, patient informed, questions answered Medical Decision Making - Medical Decision Making 6male to be admitted for vision loss, IV steroids Disposition Clinical Impression: Vision loss Disposition: ADMITTED IP TO THIS HOSP Condition: Fair Is patient prescribed a controlled substance at d/c from ED?: No Referrals: [facility],Clinic [Primary Care Provider] - 1-2 days
[2019-11-27] MEDS ORDERED: SODIUM CHLORIDE 0.9% 1,000 ML IV ONE (21:03)
[2019-11-27] MEDS ORDERED: DEXAMETHASONE SOD PHOSPHATE 10 MG/ML 1 ML VIAL IV STA (21:05)
[2019-11-28] MEDS: DEXAMETHASONE SOD PHOSPHATE 4 MG/ML 1 ML VIAL IV SCH ×3 (05:32→16:50)
[2019-11-28] MEDS ORDERED: PREDNISONE PO SCH (07:30)
[2019-11-28 08:31] LABS: Basophils % (A) 0 %; Eosinophils # (A) 0.1 k/uL (0-0.7); Eosinophils % (A) 0 %; HCT 47.7 % (39.0-53.0); HGB 15.4 gm/dL (13.0-17.5); Lymphocytes # (A) 0.5 k/uL (1.0-4.8); Lymphocytes % (A) 3 %; MCH 30.3 pg (25.0-35.0); MCHC 32.2 g/dL (31.0-37.0); MCV 94.2 fL (80.0-100.0); Mean Platelet Volume 7.6; Monocytes # (A) 0.1 k/uL (0-1.0); Monocytes % (A) 1 %; Neutrophils # (A) 13.9 k/uL (1.3-7.7); Neutrophils % (A) 95 %; Platelet Count 204 k/uL (150-450); RBC 5.06 m/uL (4.30-5.90); RDW 13.7 % (11.5-15.5); WBC 14.6 k/uL (3.8-10.6)
[2019-11-28 08:48] LABS: AST 26 U/L (17-59); African American GFR (CKD) >90 (>60 ml/min/1.73 sqM); Albumin 4.2 g/dL (3.5-5.0); Alkaline Phosphatase 58 U/L (38-126); Anion Gap 12 mmol/L; Blood Urea Nitrogen 19 mg/dL (9-20); Calcium 9.1 mg/dL (8.4-10.2); Carbon Dioxide 22 mmol/L (22-30); Chloride 104 mmol/L (98-107); Glucose 234 mg/dL (74-99); Non-African American GFR(CKD) >90 (>60 ml/min/1.73 sqM); Potassium 4.5 mmol/L (3.5-5.1); Sodium 138 mmol/L (137-145); Total Protein 6.7 g/dL (6.3-8.2)
[2019-11-28 08:55] LABS: ALT 38 U/L (4-49)
--- NOTE | 2019-11-28 10:00 | P.HPIM ---
History of Present Illness patient is a pleasant 54-year-old male came in with complaints of the worsening vision in the right eye. Patient had similar issue and lost most of his vision in the left eye. Patient was seen here in this hospital in month of September at that time patient was evaluated for syncope. Patient doesn't have any significant cardiac issues patient does have history of hypertension but the well controlled with amlodipine. A week after discharge from here patient started having visual problems. Patient apparently had a neck surgery and once his cervical collar was removed patient had a started having the visual problems and he attributes the is visual problems to the neck surgery. Patient was evaluated in ophthalmology clinic at [facility] and patient was known to an disintegrator here Dr. Huertas. At that time patient was told nothing much can be done they'll only can use steroids although , from patient's history of unsure about the exact etiology of his loss of vision in the left eye.patient's file vision is okay but he sees my finger is blurry while doing this field of vision testing and the he can see colors superimposed on my finger. Dr. Borrego for him was consulted patient was seen in [facility] opht halmology clinic and patient was told nothing much can be done except for the steroids and patient was given steroids. Patient doesn't have any other weakness tingling and numbness or any other focal deficits at this time. I am obtaining medical records from [place] [place], in was to [place] regarding his ophthalmology visitand their assessment. Review of Systems REVIEW OF SYSTEMS: CONSTITUTIONAL: No fever, no malaise, no fatigue. HEENT: No recent hearing problems. Denied any sore throat. CARDIOVASCULAR: No chest pain, orthopnea, PND, no palpitations, no syncope. PULMONARY: No shortness of breath, no cough, no hemoptysis. GASTROINTESTINAL: No diarrhea, no nausea, no vomiting, no abdominal pain. NEUROLOGICAL: No headaches, no weakness, no numbness. HEMATOLOGICAL: Denies any bleeding or petechiae. GENITOURINARY: Denies any burning micturition, frequency, or urgency. MUSCULOSKELETAL/RHEUMATOLOGICAL: Denies any joint pain, swelling, or any muscle pain. ENDOCRINE: Denies any polyuria or polydipsia. The rest of the 14-point review of systems is negative. Past Medical History Past Medical History: GERD/Reflux, Osteoarthritis (OA) Additional Past Medical History / Comment(s): Pt states since cervical surgery in Jun, 2019 he has had some upper abdominal pain/balance issues, vertigo. 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 He can no longer drive, d/t limited ROM of his neck. His spouse drives and has taken FMLA to assist pt. Smoking Status: Never smoker Past Alcohol Use History: Occasional Past Drug Use History: None Reported - Past Family History Mother Family Medical History: Cancer Additional Family Medical History / Comment(s): Pacemaker, colon cancer, smoker. Medications and Allergies Home Medications Medication Instructions Recorded Confirmed Type Atorvastatin [Lipitor] 40 mg PO HS #90 tab 09/12/19 11/27/19 Rx Aspirin [Adult Low Dose Aspirin EC] 81 mg PO HS 10/27/19 11/27/19 History amLODIPine [Norvasc] 5 mg PO HS 10/27/19 11/27/19 History predniSONE [Deltasone] See Taper PO DAILY 11/28/19 11/28/19 History Allergies Allergy/AdvReac Type Severity Reaction Status Date / Time No Known Allergies Allergy Verified 11/27/19 21:54 Physical Exam Vitals: Vital Signs Temp Pulse Pulse Resp BP BP Pulse Ox 11/28/19 08:42 98.5 F 96 16 140/89 97 11/28/19 03:50 98.3 F 81 16 122/80 98 11/27/19 21:56 98.6 F 86 16 145/89 97 11/27/19 19:58 98.5 F 97 18 160/104 98 Intake and Output 11/27/19 11/28/19 11/28/19 22:59 06:59 14:59 Intake Total 500 300 Balance 500 300 Intake: Oral 500 300 Other: Voiding Method Toilet Toilet Weight 90.718 kg PHYSICAL EXAMINATION: GENERAL: The patient is alert and oriented x3, not in any acute distress. Well developed, well nourished. HEENT: Pupils are round and equally reacting to light. EOMI. No scleral icterus. No conjunctival pallor. Normocephalic, atraumatic. No pharyngeal erythema. No thyromegaly. CARDIOVASCULAR: S1 and S2 present. No murmurs, rubs, or gallops. PULMONARY: Chest is clear to auscultation, no wheezing or crackles. ABDOMEN: Soft, nontender, nondistended, normoactive bowel sounds. No palpable organomegaly. MUSCULOSKELETAL: No joint swelling or deformity. EXTREMITIES: No cyanosis, clubbing, or pedal edema. NEUROLOGICAL: Gross neurological examination did not reveal any focal deficits except those visual deficits mentioned above. SKIN: No rashes. Results CBC & Chem 7: 11/28/19 08:07 11/28/19 08:07 Labs: Abnormal Lab Results - Last 24 Hours (Table) 11/28/19 11/28/19 Range/Units 08:07 08:07 WBC 14.6 H (3.8-10.6) k/uL Neutrophils # 13.9 H (1.3-7.7) k/uL Lymphocytes # 0.5 L (1.0-4.8) k/uL Glucose 234 H (74-99) mg/dL Thrombosis Risk Factor Assmnt - Choose All That Apply Each Factor Represents 1 point: Age 41-60 years Thrombosis Risk Factor Assessment Total Risk Factor Score: 1 Thrombosis Risk Factor Assessment Level: Low Risk Assessment and Plan Plan: -blurriness of vision in the right eye: Etiology is not clear as mentioned above ophthalmology was consulted and will obtain medical records from [facility] ophthalmology clinic. Patient will be continued on steroids as recommended by disintegrator from the [facility].Patient visual problems are not related to his cardiac causes of hypertension. -hypertension: Continue with amlodipine -Recent C2-22 cervical fusion surgery.
--- NOTE | 2019-11-28 19:37 | P.CNNES ---
History of Present Illness Consult date: 11/28/19 Requesting physician: Eduardo Weems Reason for Consult: Loss of vision History of Present Illness: Patient is a 54-year-old male came to the hospital yesterday at 7:48 PM referred from [facility] for new onset visual disturbance right eye. Patient states that he had undergone cervical neck fusion from C2 to T2 on 06/20/2019. It was performed for degenerative disc disease and some injury to her neck from the past. He used cervical collar for about 3 months after surgery. About a week after he took off his collar, he developed blurred vision left eye. A few days later, he woke up with lower altitudinal visual field defect of the left eye. He went to [facility], where he underwent an MRI of the brain as well as optic nerve on 09/21/2019, which were both read as normal. No evidence of demyelinating disease or acute stroke. He was maintained on aspirin 81 mg daily and Lipitor. Patient states that in the past couple months, he has been noticing some visual disturbance right eye. He would be in a dim room, looking at the bright screen, when he would develop specks that turned purple involving the right eye, mainly involving the middle of the right lateral eye field. He describes it as a purple blanket lasting for 5 seconds and then goes away occurring several times a day. Last weekend the symptoms came and stayed. He was seen by his marble cutter yesterday, who referred him to [facility]. His visual acuity was 20/30 right eye and 20/50 left eye. Intraocular pressure was 19 OD, 21 OS. On dilated eye examination, it was reported temporal disc edema OD with pallor inferiorly. 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 It was also mentioned likely nonarteritic anterior ischemic optic neuropathy in setting of cardiovascular risk factors and disc at risk but sudden onset vision loss in both eyes make GCA possible. CT, CTA, MRI brain and brainstem were recommended if not done in the past. CBC, ESR, CRP, TB, Lyme, syphilis, hemoglobin A1c, Santos and lysozyme levels. Vital signs on arrival blood pressure 160/104, temperature 98.5, pulse rate 97. Patient's blood test shows WBC 14.6 hemoglobin 15.4, platelets 204. Chem-20 normal, glucose 234. Patient's previous lipid panel with cholesterol 235, LDL 155, HDL 42, triglycerides 191. Hepatic panel normal. Rheumatoid factor negative, ELADIO negative, dsDNA negative. ESR 2 and CRP <0.4 normal. Patient had a previous MRI of the lumbar spine for "low back pain into right leg" which revealed an normal as development of the lumbosacral junction with hemivertebra. Right-sided L5-S1 neural foraminal stenosis. Multilevel spondylotic changes with dextroscoliosis deformity. No acute bony abnormality. No fracture. No spinal stenosis. Large anterior L5-S1 lumbar disc herniation with calcification. Patient denies any history of hypertension although lately it has been going up. Denies diabetes. Never smoked. He drinks 1 glass of wine almost every day. Review of Systems As above in detail. He has chronic neck pain. Some back pain. Multiple nerve injuries as he mentioned above. Visual disturbance. Denies any hoarseness, sore throat, dysphagia. Denies any chest pain shortness of breath, wheezing or cough. Denies nausea vomiting diarrhea. No focal symptoms otherwise. Denies hearing loss, no rash. No wheezing, no bruising or easy bleeding. Past Medical History Past Medical History: GERD/Reflux, Osteoarthritis (OA) Additional Past Medical History / Comment(s): Pt states since cervical surgery in Jun, 2019 he has had some upper abdominal pain/balance issues, vertigo. 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, 2019 History of Any Multi-Drug Resistant Organisms: None Reported Past Surgical History: Hernia Repair, Orthopedic Surgery Additional Past Surgical History / Comment(s): 06/24/19 cervical fusion C2-T2 with hardware done at [facility]-limited ROM with neck, bilateral carpal tunnel releases, L hand thumb tendon surgery, umbilical hernia repair, colonoscopy Past Anesthesia/Blood Transfusion Reactions: No Reported Reaction Past Psychological History: No Psychological Hx Reported Additional Psychological History / Comment(s): Pt resides with his spouse and one of their children. He can no longer drive, d/t limited ROM of his neck. His spouse drives and has taken FMLA to assist pt. Smoking Status: Never smoker Past Alcohol Use History: Occasional Past Drug Use History: None Reported - Past Family History Mother Family Medical History: Cancer Additional Family Medical History / Comment(s): Pacemaker, colon cancer, smoker. Medications and Allergies Home Medications Medication Instructions Recorded Confirmed Type Atorvastatin [Lipitor] 40 mg PO HS #90 tab 09/12/19 11/27/19 Rx Aspirin [Adult Low Dose Aspirin EC] 81 mg PO HS 10/27/19 11/27/19 History amLODIPine [Norvasc] 5 mg PO HS 10/27/19 11/27/19 History predniSONE [Deltasone] See Taper PO DAILY 11/28/19 11/28/19 History Allergies Allergy/AdvReac Type Severity Reaction Status Date / Time No Known Allergies Allergy Verified 11/27/19 21:54 Physical Examination - Vital Signs Vital Signs: Vital Signs Temp Pulse Pulse Resp BP BP Pulse Ox 11/28/19 14:20 98.3 F 92 14 145/88 98 11/28/19 08:42 98.5 F 96 16 140/89 97 11/28/19 03:50 98.3 F 81 16 122/80 98 11/27/19 21:56 98.6 F 86 16 145/89 97 11/27/19 19:58 98.5 F 97 18 160/104 98 Intake and Output 11/28/19 11/28/19 11/28/19 06:59 14:59 22:59 Intake Total 300 Balance 300 Intake: Oral 300 Other: Voiding Method Toilet Toilet # Voids 2 On examination patient is a middle aged male, in no acute distress. Patient is alert awake oriented to time place and person. Speech and language functions are normal. Attention and concentration fund of knowledge is adequate. On cranial nerve examination pupils are round and reacting to light, possible left APD. Visual bustillos revealed left lower altitudinal defect left eye. Visual bustillos are normal in the right eye. Extraocular muscles intact. Face is symmetric, tongue protrudes the midline. Palatal elevation and sensation normal. Hearing and shoulder shrug normal. On muscle strength testing there is no pronator drift. The strength appears normal in the arms except inspector machine cut glass is about 4 bilaterally. In the lower limbs, the strength appears normal. He has some give away weakness of the right ankle dorsiflexion and toe extension. Reflexes are 1+ to 2 in the upper extremities, trace at the right knee 1+ left. Ankles are 1 bilaterally. Plantars are downgoing. Sensory touch is equal. No ataxia for [id number] testing. Tone and bulk of muscles nor mal. Gait deferred. No obvious bruit, S1 and S2 audible. Abdomen soft nontender, chest is clear. Results - Laboratory Findings CBC and BMP: 11/28/19 08:07 11/28/19 08:07 Abnormal Lab Findings: Abnormal Labs 11/28/19 11/28/19 08:07 08:07 WBC 14.6 H Neutrophils # 13.9 H Lymphocytes # 0.5 L Glucose 234 H Assessment and Plan Assessment: * New-onset temporal disc edema, OD. * History of lower altitudinal visual field defect, OS 09/20/2019. * Hypertension * Dyslipidemia * History of anterior cervical discectomy and fusion C2 to C6, posterior C2 to T2 instrumentation and fusion with osteotomies at 5-7 and correction of deformity 06/20/2019. * Scoliosis Plan: * Patient will undergo urgent CTA of head and neck to rule out large vessel occlusive disease. * 2-D echo with bubble study to rule out PFO. * Start dual antiplatelet agent including Plavix 75 mg and aspirin 81 mg, if okay with the marble cutter. * Patient started on Solu-Medrol 1 g IV PB daily. * Consider temporal artery biopsy, if recommended by marble cutter. * Start Pepcid 20 mg twice a day for gastric ulcer prophylaxis. * Fasting a.m. lipid panel, hemoglobin A1c, Lyme titer, RPR, Santos, lysozyme level * Await ophthalmology consultation. * Telemetry monitoring.
--- NOTE | 2019-11-28 21:16 | CT ---
EXAMINATION TYPE: CT angio head neck DATE OF EXAM: 11/28/2019 HISTORY: visual feild defect COMPARISON: None available. CT DLP: 1673 mGycm. Automated Exposure Control for Dose Reduction was Utilized. TECHNIQUE: Initial noncontrast axial CT images of the head was performed. Then CTA scan of the neck i s performed with IV Contrast, patient injected with 65 mL of Isovue 370, axial images are obtained, c oronal and sagittal reformatted images are reviewed. Three-D reconstructed images are created on an [employer] workstation and reviewed. FINDINGS: Noncontrast head CT: There is no intracranial hemorrhage, mass effect, midline shift or hydrocephalus . Morales-white differentiation and white matter grossly maintained. No calvarial fracture. The paranasa l sinuses and mastoid air cells are adequately aerated. Carotid/Vascular Structures: The cranial and cervical carotid and vertebral are grossly unremarkable. The TAJ, MCA and [employer] as well as the [place] of [place] are unremarkable. No evidence of high grade josh nosis, aneurysm or rupture. Cervical spine fusion is seen. Other: None. IMPRESSION: No significant abnormality is seen.
[2019-11-28] MEDS: ASPIRIN 81 MG PO SCH (21:51)
[2019-11-28] MEDS: ATORVASTATIN 40 MG TAB PO SCH (21:51)
[2019-11-28] MEDS: amLODIPine 5 MG TAB PO SCH (21:51)
[2019-11-28] MEDS: FAMOTIDINE 20 MG TAB PO SCH (21:51)
[2019-11-29] MEDS: CLOPIDOGREL 75 MG TAB PO SCH ×2 (01:02→07:54)
[2019-11-29 06:26] LABS: Glucose,Whole Blood 134 mg/dL (75-99)
[2019-11-29] MEDS: INSULIN ASPART (NovoLOG) 100 UNIT/ML VIAL SQ SCH ×4 (07:54→21:12)
[2019-11-29] MEDS: methylPREDNISolone SOD SUCC 1,000 MG in SODIUM CHLORIDE 0.9% 250 ML IVPB SCH (07:59)
[2019-11-29] MEDS: FAMOTIDINE 20 MG TAB PO SCH ×2 (07:59→21:16)
[2019-11-29 11:27] LABS: Glucose,Whole Blood 110 mg/dL (75-99)
[2019-11-29 13:53] LABS: Cholesterol 203 mg/dL (<200); HDL Cholesterol 89 mg/dL (40-60); LDL Cholesterol,Calculated 85 mg/dL (0-99); Triglycerides 145 mg/dL (<150)
--- NOTE | 2019-11-29 14:29 | P.PN ---
Subjective Patient is admitted for visual problem and vision loss in the right eye patient had similar issues few months ago with significant loss of vision in the left left eye. Patient was evaluated by squeezer operator in [place] was diagnosed with the possibility of [id number] regional ischemia are temporal arteritis. Possibility of temporal arteritis is extremely low as patient doesn't have any symptoms of temporal arteritis including headache, patient has normal ESR without any significant jaw pain. Neurology evaluated the patient is recommended to continue systemic steroids until tomorrow. Constitutional: Denied any fatigue denied any fever. Cardio vascular: denied any chest pain, palpitations Gastrointestinal denied any nausea vomiting Pulmonary: Denied any shortness of breath cough Neurologic denied any new focal deficits All inpatient medications were reviewed and appropriate changes in these medications as dictated in the interval history and assessment and plan. Objective - Vital Signs Vital signs: Vital Signs Temp 98.4 F 11/29/19 08:06 Pulse 75 11/29/19 08:06 Resp 16 11/29/19 08:06 BP 128/83 11/29/19 08:06 Pulse Ox 97 11/29/19 08:06 Intake & Output 11/28/19 11/29/19 11/29/19 18:59 06:59 18:59 Intake Total 450 Balance 450 Intake: Oral 450 Other: Voiding Method Toilet Toilet Toilet # Voids 2 3 - Exam PHYSICAL EXAMINATION: GENERAL: The patient is alert and oriented x3, not in any acute distress. Well developed, well nourished. HEENT: Pupils are round and equally reacting to light. EOMI. No scleral icterus. No conjunctival pallor. Normocephalic, atraumatic. No pharyngeal erythema. No thyromegaly. CARDIOVASCULAR: S1 and S2 present. No murmurs, rubs, or gallops. PULMONARY: Chest is clear to auscultation, no wheezing or crackles. ABDOMEN: Soft, nontender, nondistended, normoactive bowel sounds. No palpable organomegaly. MUSCULOSKELETAL: No joint swelling or deformity. EXTREMITIES: No cyanosis, clubbing, or pedal edema. NEUROLOGICAL: Gross neurological examination did not reveal any focal deficits except those visual deficits mentioned above. SKIN: No rashes. - Labs CBC & Chem 7: 11/28/19 08:07 11/28/19 08:07 Labs: Abnormal Lab Results - Last 24 Hours (Table) 11/29/19 11/29/19 11/29/19 Range/Units 06:24 10:28 11:25 POC Glucose (mg/dL) 134 H 110 H (75-99) mg/dL Cholesterol 203 H (<200) mg/dL HDL Cholesterol 89 H (40-60) mg/dL Assessment and Plan Plan: -blurriness of vision in the right eye: Etiology is not clear of ophthalmology evaluated the patient and diagnosed with the possibility of non -arteretic retinal ischemia of temporal arteritis although patient doesn't have any cli nical signs or symptoms other biochemical evidence of temporal arteritis patient is presently on high-dose systemic steroids. Patient was evaluated by neurology and ophthalmology. -hypertension: Continue with amlodipine -Recent C2-22 cervical fusion surgery.
--- NOTE | 2019-11-29 16:48 | P.PN ---
Subjective Progress Note Date: 11/29/19 Patient states his right visual field is maybe slightly worse, or no change. Left visual field is unchanged. Patient does have some headaches which he attributes to the neck issues. Denies any temporal artery tenderness, fever or weight loss. In fact he has gained weight from steroids. 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 Objective - Vital Signs Vital signs: Vital Signs Temp 98.2 F 11/29/19 14:26 Pulse 84 11/29/19 14:26 Resp 16 11/29/19 08:06 BP 136/88 11/29/19 14:26 Pulse Ox 94 L 11/29/19 14:26 Intake & Output 11/28/19 11/29/19 11/29/19 18:59 06:59 18:59 Intake Total 450 Balance 450 Intake: Oral 450 Other: Voiding Method Toilet Toilet Toilet # Voids 2 3 - Exam Patient's mental status, speech and language functions are normal. Patient continues to have altitudinal defect lower visual field, left eye. Patient's visual bustillos are completely normal in the right eye. Rest of the examination unchanged. - Labs CBC & Chem 7: 11/28/19 08:07 11/28/19 08:07 Labs: Abnormal Lab Results - Last 24 Hours (Table) 11/29/19 11/29/19 11/29/19 Range/Units 06:24 10:28 11:25 POC Glucose (mg/dL) 134 H 110 H (75-99) mg/dL Cholesterol 203 H (<200) mg/dL HDL Cholesterol 89 H (40-60) mg/dL Assessment and Plan Assessment: * New-onset temporal disc edema, OD. * History of lower altitudinal visual field defect, OS 09/20/2019. * Hypertension * Dyslipidemia * History of anterior cervical discectomy and fusion C2 to C6, posterior C2 to T2 instrumentation and fusion with osteotomies at 5-7 and correction of deformity 06/20/2019. * Scoliosis Plan: * CTA of head and neck are normal, with no aneurysm, stenosis. * 2-D echo with bubble study to rule out PFO, still pending. * Continue dual antiplatelet agent including Plavix 75 mg and aspirin 81 mg. * Patient started on Solu-Medrol 1 g IV PB daily. * Consider temporal artery biopsy, as recommended by store consultant at [facility]. Discussed with Dr. Wen. * Start Pepcid 20 mg twice a day for gastric ulcer prophylaxis. * Fasting a.m. lipid panel, hemoglobin A1c, Lyme titer, RPR, Santos, lysozyme level all pending. * Await ophthalmology consultation. * Telemetry monitoring.
[2019-11-29 16:53] LABS: Glucose,Whole Blood 215 mg/dL (75-99)
--- NOTE | 2019-11-29 17:11 | P.GSCN ---
History of Present Illness Consult date: 11/29/19 Reason for Consult: possible temporal artery biopsy History of present illness: This is a 54-year-old male came to the hospital yesterday evening referred from [facility] for new onset visual disturbance right eye. He has a past medical history that includes GERD and osteoarthritis. [facility] [place] Patient states that he had undergone cervical neck fusion from C2 to T2 on 06/20/2019. It was performed for degenerative disc disease and some injury to her neck from the past. He used cervical collar for about 3 months after surgery. About a week after he took off his collar, he developed blurred vision left eye. A few days later, he woke up with lower altitudinal visual field defect of the left eye. He went to [facility], where he underwent an MRI of the brain as well as optic nerve on 09/21/2019, which were both read as normal. No evidence of demyelinating disease or acute stroke. He was maintained on aspirin 81 mg daily and Lipitor. Patient states that in the past couple months, he has been noticing some visual disturbance right eye. He would be in a dim room, looking at the bright screen, when he would develop specks that turned purple involving the right eye, mainly involving the middle of the right lateral eye field. He describes it as a purple blanket lasting for 5 seconds and then goes away occurring several times a day. Last weekend the symptoms came and stayed. He was seen by his tube heater yesterday, who referred him to [facility]. Reports impression state visual acuity was 20/30 right eye and 20/50 left eye. Intraocular pressure was 19 OD, 21 OS. On dilated eye examination, it was reported temporal disc edema OD with pallor inferiorly. 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 It was also mentioned likely nonarteritic anterior ischemic optic neuropathy in setting of cardiovascular risk factors and disc at risk but sudden onset vision loss in both eyes make GCA possible. CT, CTA, MRI brain and brainstem were recommended if not done in the past. Patient's blood test shows WBC 14.6 hemoglobin 15.4, platelets 204. Chem-20 normal, glucose 234. Patient's previous lipid panel with cholesterol 235, LDL 155, HDL 42, triglycerides 191. Hepatic panel normal. Rheumatoid factor negative, ELADIO negative, dsDNA negative. ESR 2 and CRP <0.4 normal. Patient had a previous MRI of the lumbar spine for "low back pain into right leg" which revealed an normal as development of the lumbosacral junction with hemivertebra. Right-sided L5-S1 neural foraminal stenosis. Multilevel spondylotic changes with dextroscoliosis deformity. No acute bony abnormality. No fracture. No spinal stenosis. Large anterior L5-S1 lumbar disc herniation with calcification. Patient denies any history of hypertension although lately blood pressure has been elevated. Denies diabetes. Never smoked. He drinks 1 glass of wine almost every day. He states he has limited mobility of his neck, however when he turns it slightly he notices with his right eye that there is a black spot that he sees. He denies any headache, temporal pain or inflammation, shortness of breath, or chest pain. Review of Systems A 14 point review of symptoms completed all pertinent positives and negatives as stated in the HPI Past Medical History Past Medical History: GERD/Reflux, Osteoarthritis (OA) Additional Past Medical History / Comment(s): Pt states since cervical surgery in Jun, 2019 he has had some upper abdominal pain/balance issues, vertigo. 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, 2019 History of Any Multi-Drug Resistant Organisms: None Reported Past Surgical History: Hernia Repair, Orthopedic Surgery Additional Past Surgical History / Comment(s): 06/24/19 cervical fusion C2-T2 with hardware done at [facility]-limited ROM with neck, bilateral carpal tunnel releases, L hand thumb tendon surgery, umbilical hernia repair, colonoscopy Past Anesthesia/Blood Transfusion Reactions: No Reported Reaction Past Psychological History: No Psychological Hx Reported Additional Psychological History / Comment(s): Pt resides with his spouse and one of their children. He can no longer drive, d/t limited ROM of his neck. His spouse drives and has taken FMLA to assist pt. Smoking Status: Never smoker Past Alcohol Use History: Occasional Past Drug Use History: None Reported - Past Family History Mother Family Medical History: Cancer Additional Family Medical History / Comment(s): Pacemaker, colon cancer, smoker. Medications and Allergies Home Medications Medication Instructions Recorded Confirmed Type Atorvastatin [Lipitor] 40 mg PO HS #90 tab 09/12/19 11/27/19 Rx Aspirin [Adult Low Dose Aspirin EC] 81 mg PO HS 10/27/19 11/27/19 History amLODIPine [Norvasc] 5 mg PO HS 10/27/19 11/27/19 History predniSONE [Deltasone] See Taper PO DAILY 11/28/19 11/28/19 History Allergies Allergy/AdvReac Type Severity Reaction Status Date / Time No Known Allergies Allergy Verified 11/27/19 21:54 Surgical - Exam Vital Signs Temp Pulse Resp BP Pulse Ox 98.5 F 97 18 160/104 98 11/27/19 19:58 11/27/19 19:58 11/27/19 19:58 11/27/19 19:58 11/27/19 19:58 General appearance: The patient is alert, oriented, in no acute distress. HET: Head is normocephalic and atraumatic. Pupils are equal and reactive. EOM intact bilaterally. Neck: Supple without lymphadenopathy. Trachea midline. Patient is only able to minimally turn his neck left and right. Heart: S1 S2. Regular rate and rhythm. Lungs: No crackles or wheezes are heard. Abdomen: Soft, nontender, nondistended with bowel sounds. Extremities: Normal skin color and turgor. No cyanosis, rash, ulceration, clubbing, or edema. Radial pulse is 2/4 bilaterally. Neurological: No focal deficits. Strength and sensation are grossly intact. Bilateral upper extremities with minimal weakness. Tongue protrudes midline. Facial symmetry. Results The angiogram head and neck reviewed: Impression states no significant abnormality seen. - Labs 11/28/19 08:07 11/28/19 08:07 Abnormal Lab Results - Last 24 Hours (Table) 11/29/19 11/29/19 11/29/19 Range/Units 06:24 10:28 11:25 POC Glucose (mg/dL) 134 H 110 H (75-99) mg/dL Cholesterol 203 H (<200) mg/dL HDL Cholesterol 89 H (40-60) mg/dL Diabetes panel 11/29/19 Range/Units 10:28 Triglycerides 145 (<150) mg/dL HDL Cholesterol 89 H (40-60) mg/dL Assessment and Plan Assessment: 1. New onset right eye visual disturbance 2. Left eye visual loss, lower altitudinal visual defect 3. Hypertension 4. History of anterior cervical dissect me and fusion C2 to C6, posterior C2 to T2 06/2019 Plan: CT angiogram of head and neck were reviewed with no abnormal findings. The patient may continue steroids as ordered. Dr. Wen had a discussion with the patient regarding possibility of temporal artery biopsy. The patient declines at this time of having a temporal artery biopsy. The patient was given Dr. Wen's office information. If the patient proceeds to change his mind, he can call the office for an appointment for further discussion of elective outpatient temporal artery biopsy. Otherwise our recommendation would be to follow-up at [facility] with his surgeon as well as a neuro-ophth almologist. Thank you for this consultation allowing us to take part in the plan of care of your patient. The impression and plan of care has been dictated as directed. I performed a history and examination of this patient, discussed the same with the dictator. I agree with the dictator's note ,documented as a scribe. Any additional findings or plans will be noted.
[2019-11-29 19:34] VITALS: PULSE 86
[2019-11-29] MEDS ORDERED: ACETAMINOPHEN TAB 325 MG TAB PO STA (19:38)
[2019-11-29 20:44] LABS: Glucose,Whole Blood 151 mg/dL (75-99)
[2019-11-29] MEDS: amLODIPine 5 MG TAB PO SCH (21:11)
[2019-11-29] MEDS: ATORVASTATIN 40 MG TAB PO SCH (21:11)
[2019-11-29] MEDS: ASPIRIN 81 MG PO SCH (21:11)
[2019-11-29 22:30] LABS: Hemoglobin A1C 5.7 % (4.0-6.0)
[2019-11-30 06:41] LABS: Glucose,Whole Blood 129 mg/dL (75-99)
[2019-11-30 08:23] LABS: Angiotensin-1 Converting Enz. 15 U/L (8-52)
[2019-11-30 08:51] VITALS: BP 175/89; RESP 16; TEMP 97.5
[2019-11-30] MEDS: INSULIN ASPART (NovoLOG) 100 UNIT/ML VIAL SQ SCH ×2 (08:51→12:06)
[2019-11-30] MEDS: FAMOTIDINE 20 MG TAB PO SCH (09:02)
[2019-11-30] MEDS: methylPREDNISolone SOD SUCC 1,000 MG in SODIUM CHLORIDE 0.9% 250 ML IVPB SCH (09:02)
[2019-11-30] MEDS: CLOPIDOGREL 75 MG TAB PO SCH (09:02)
--- NOTE | 2019-11-30 11:13 | ECHOF ---
Referral Reason:Vision loss MEASUREMENTS -------- HEIGHT: 175.3 cm WEIGHT: 90.3 kg BP: 151/85 RVIDd: 2.5 cm (< 3.3) IVSd: 1.2 cm (0.6 - 1.1) LVIDd: 4.4 cm (3.9 - 5.3) LVPWd: 1.3 cm (0.6 - 1.1) IVSs: 1.6 cm LVIDs: 2.3 cm LVPWs: 2.0 cm Ao Diam: 3.1 cm (2.0 - 3.7) AV Cusp: 2.3 cm (1.5 - 2.6) LA Diam: 3.2 cm (2.7 - 3.8) MV EXCURSION: 13.883 mm (> 18.000) MV EF SLOPE: 71 mm/s (70 - 150) EPSS: 0.5 cm MV E Aime: 1.00 m/s MV DecT: 117 ms MV A Aime: 0.78 m/s MV E/A Ratio: 1.28 RAP: 5.00 mmHg RVSP: 27.65 mmHg FINDINGS -------- This was a technically good study. The left ventricular size is normal. There is mild concentric left ventricular hypertrophy. Overa ll left ventricular systolic function is normal with, an EF between 55 - 60 %. The right ventricle is normal in size. The left atrial size is normal. The right atrial size is normal. Contrast study was performed with 2 iv injections of 8 ccs of agitated normal saline, at rest, and wi th cough. Interatrial and interventricular septum intact. Bubble study to rule out shunt. No shunt seen. The aortic valve is trileaflet and appears structurally normal. The mitral valve is normal. There is trace mitral regurgitation. The tricuspid valve appears structurally normal. Trace tricuspid regurgitation present. Right asha tricular systolic pressure is normal at < 35 mmHg. There is no pulmonic regurgitation present. The aortic root size is normal. Normal inferior vena cava with normal inspiratory collapse consistent with estimated right atrial pre ssure of 5 mmHg. There is no pericardial effusion. CONCLUSIONS -------- 1. The left ventricular size is normal. 2. There is mild concentric left ventricular hypertrophy. 3. Overall left ventricular systolic function is normal with, an EF between 55 - 60 %. 4. Contrast study was performed with 2 iv injections of 8 ccs of agitated normal saline, at rest, and with cough. 5. Interatrial and interventricular septum intact. 6. Bubble study to rule out shunt. No shunt seen. 7. There is trace mitral regurgitation. 8. Trace tricuspid regurgitation present. 9. There is no pericardial effusion. [employer] ARCHITECT: Africa Amado RDCS
[2019-11-30 11:31] LABS: Glucose,Whole Blood 118 mg/dL (75-99)
--- NOTE | 2019-11-30 12:31 | P.DS ---
Providers Date of admission: 11/30/19 08:27 Attending physician: Cameron Serrano Consults: 11/27/19 21:03 Consult Physician Routine Consulting Provider: Jn Huertas Consult Reason/Comments: known Do you want consulting provider notified?: Yes 11/28/19 14:48 Consult Physician Routine Consulting Provider: Star Armendariz Consult Reason/Comments: lost in vision Do you want consulting provider notified?: Yes 11/29/19 12:50 Consult Physician Routine Consulting Provider: Jericho Petersen Consult Reason/Comments: Temperal Artery Biopsy Do you want consulting provider notified?: Yes Primary care physician: [facility] Course: Patient is admitted for visual problem and vision loss in the right eye patient had similar issues few months ago with significant loss of vision in the left left eye. Patient was evaluated by sack department supervisor in [place] was diagnosed with the possibility of [id number] regional ischemia are temporal arteritis. Possibility of temporal arteritis is extremely low as patient doesn't have any symptoms of temporal arteritis including headache, patient has normal ESR without any significant jaw pain. Neurology evaluated the patient is recommended to continue systemic steroids until tomorrow. 11/30/2019 Patient was a valid for stroke as well and neurology as recorded by neurology although workup is negative patient had his CT angios the head and neck which was negative and the patient was started on Plavix. Patient had an echo cardiac exam which is within normal limits and the patient will need higher speciality care from ophthalmology because of which will make an appointment at [facility] as recommended by sack department supervisor here. Patient says there is no improvement in his vision. PHYSICAL EXAMINATION: GENERAL: The patient is alert and oriented x3, not in any acute distress. Well developed, well nourished. HEENT: Pupils are round and equally reacting to light. EOMI. No scleral icterus. No conjunctival pallor. Normocephalic, atraumatic. No pharyngeal erythema. No thyromegaly. CARDIOVASCULAR: S1 and S2 present. No murmurs, rubs, or gallops. PULMONARY: Chest is clear to auscultation, no wheezing or crackles. ABDOMEN: Soft, nontender, nondistended, normoactive bowel sounds. No palpable organomegaly. MUSCULOSKELETAL: No joint swelling or deformity. EXTREMITIES: No cyanosis, clubbing, or pedal edema. NEUROLOGICAL: Gross neurological examination did not reveal any focal deficits except those visual deficits mentioned above. SKIN: No rashes. 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 Neurology evaluated the patient patient doesn't appear to have a stroke and arthritis. Further management as per ophthalmology and patient will be discharged with follow-up with ophthalmology in [facility]. -hypertension: Continue with amlodipine -Recent C2-22 cervical fusion surgery. Patient Condition at Discharge: Fair Plan - Discharge Summary Discharge Rx Participant: No New Discharge Prescriptions: New Clopidogrel [Plavix] 75 mg PO DAILY #30 tab Famotidine [Pepcid] 20 mg PO BID #30 tablet Continue Atorvastatin [Lipitor] 40 mg PO HS #90 tab amLODIPine [Norvasc] 5 mg PO HS Aspirin [Adult Low Dose Aspirin EC] 81 mg PO HS predniSONE [Deltasone] See Taper PO DAILY Discharge Medication List Atorvastatin [Lipitor] 40 mg PO HS #90 tab 09/12/19 [Rx] Aspirin [Adult Low Dose Aspirin EC] 81 mg PO HS 10/27/19 [History] amLODIPine [Norvasc] 5 mg PO HS 10/27/19 [History] predniSONE [Deltasone] See Taper PO DAILY 11/28/19 [History] Clopidogrel [Plavix] 75 mg PO DAILY #30 tab 11/30/19 [Rx] Famotidine [Pepcid] 20 mg PO BID #30 tablet 11/30/19 [Rx] Follow up Appointment(s)/Referral(s): [facility],Clinic [Primary Care Provider] - 3 Days Discharge Disposition: HOME SELF-CARE
== END 2019-11-30 13:10 | disposition home or self-care (01) | DRG 123 ==
LOC: EC 19:48 → 1SOBS 21:04 → OBSVTOIN 11-30 08:27
PROVIDERS: ADMIT Hospitalist; ATTEND Hospitalist
DX: H47.013 Ischemic optic neuropathy, bilateral (principal); I11.9 Hypertensive heart disease without heart failure; E78.5 Hyperlipidemia, unspecified; H53.8 Other visual disturbances; H53.452 Other localized visual field defect, left eye; M51.27 Other intervertebral disc displacement, lumbosacral region; M41.9 Scoliosis, unspecified; M48.07 Spinal stenosis, lumbosacral region; K21.9 Gastro-esophageal reflux disease without esophagitis; M19.90 Unspecified osteoarthritis, unspecified site; Z79.82 Long term (current) use of aspirin; Z79.899 Other long term (current) drug therapy; Z98.1 Arthrodesis status; Z87.39 Personal history of other diseases of the musculoskeletal system and connective tissue; Z87.19 Personal history of other diseases of the digestive system; Z98.890 Other specified postprocedural states; Z80.0 Family history of malignant neoplasm of digestive organs; Z82.49 Family history of ischemic heart disease and other diseases of the circulatory system; Z81.2 Family history of tobacco abuse and dependence
CPT/HCPCS: 70496; 70498; 80053; 80061; 82164; 83036; 85025; 85549; 85652; 86618; 86780; 93306; 96374; 99285

== ENCOUNTER → 2020-10-15 | Outpatient (CLI) | payer OTHER ==
--- NOTE | 2020-10-16 13:30 | CT ---
EXAMINATION TYPE: CT abdomen wo/w con DATE OF EXAM: 10/15/2020 COMPARISON: None INDICATION: Epigastric abdominal pain. DLP: 2162.9 mGycm, Automated exposure control for dose reduction was used. CONTRAST: 100ml mL of Isovue 300. Study performed with Oral Contrast TECHNIQUE: Axial images were obtained from above the diaphragm to the pubic rami in the axial plane a t 5 mm thick sections. Reconstructed images are reviewed on the computer in the coronal plane. FINDINGS: Limited CT sections are obtained the lung bases. The lung bases are clear. CT ABDOMEN: Liver: Normal Spleen: Normal Pancreas: Normal Adrenal glands: The adrenal glands are normal. Gallbladder: Tiny gallstone may be within the decompressed gallbladder. Kidneys: No masses are evident. No hydronephrosis is present. Small cortical renal cysts are presen t. Delayed images were obtained through the kidneys, which remain unremarkable. Aorta: Vascular calcification is within the aorta. Inferior vena cava: Normal. CT PELVIS: Loops of bowel within the abdomen and upper pelvis are normal. There are loops of bowel which are incompletely distended or lack oral contrast limiting their evaluation. Appendix: Normal as visualized. IMPRESSIONS: 1. Cholelithiasis. 2. Small cortical renal cysts. 3. No suspicious abnormalities to account for epigastric pain.
== END | disposition home or self-care (01) ==
LOC: RADCTMAIN 13:37
DX: R10.13 Epigastric pain (principal); K80.20 Calculus of gallbladder without cholecystitis without obstruction; N28.1 Cyst of kidney, acquired
CPT/HCPCS: 74170; Q9967

== ENCOUNTER → 2021-04-01 | Outpatient (CLI) | payer OTHER ==
--- NOTE | 2021-04-01 12:32 | CT ---
EXAMINATION TYPE: CT abdomen wo/w con DATE OF EXAM: 04/01/2021 COMPARISON: CT dated 10/15/2020 HISTORY: Abdominal pain CT DLP: 1516.9 mGycm Automated exposure control for dose reduction was used. TECHNIQUE: Helical acquisition of images was performed from the lung bases through the top of iliac crest to include entire abdomen. CONTRAST: Performed with Oral Contrast and without and with IV Contrast, patient injected with 100 mL of Isovue 300. FINDINGS: Unremarkable liver. The gallbladder is not completely distended with no definite radiodense gallbladd er calculi. Unremarkable spleen, pancreas and adrenals. Bilateral renal hypodensities, likely represe nting renal cysts. No significant atherosclerotic changes of the visualized abdominal arteries. Unremarkable nondistended stomach, duodenum and small bowel. Scattered uncomplicated colonic divertic ulosis with moderate fecal loading of the colon. Normal appendix. Small fat-containing umbilical tim ia with anterior abdominal wall previous hernia repair seen in the left lower quadrant. The pelvis is not included in the scan. No suspicious abdominal lymphadenopathy or sizable abdominal fluid. Unremarkable lung bases. Double s coliotic curvature of the lumbar spine with marked degenerative changes most evident inferiorly adjac ent to a left inferior lumbar hemivertebra. No aggressive bone lesion. IMPRESSION: Moderate fecal loading of the colon. Small fat-containing umbilical hernia. Otherwise no definite acu te abnormality or suspicious lesion seen in the abdomen. The pelvis was not completely included in th e scan. Incidental findings as described above.
== END | disposition home or self-care (01) ==
LOC: RADCTMAIN 08:06
DX: K42.9 Umbilical hernia without obstruction or gangrene (principal); N28.89 Other specified disorders of kidney and ureter; K57.30 Diverticulosis of large intestine without perforation or abscess without bleeding; M41.86 Other forms of scoliosis, lumbar region; M47.816 Spondylosis without myelopathy or radiculopathy, lumbar region
CPT/HCPCS: 74170; Q9967

== ENCOUNTER → 2021-04-01 | Outpatient (CLI) | payer OTHER ==
--- NOTE | 2021-04-01 18:25 | CT ---
EXAMINATION TYPE: CT lumbar spine wo con DATE OF EXAM: 04/01/2021 9:35 AM COMPARISON: MRI dated 09/14/2019 HISTORY: Spinal stenosis CT DLP: 1238.2 mGycm Automated exposure control for dose reduction was used. Technique: Unenhanced CT of the lumbar spine was performed. Bone and soft tissue window settings are submitted as well as coronal and sagittal reconstructions. FINDINGS: L5 left hemivertebra with a dextroscoliosis of the upper lumbar spine and levoscoliosis of the lower lumbar spine. Associated right hemilumbarization of S1. Accordingly, the right side of L4 is articula ting with S1 and the left side of L4 is articulating with the left L5 hemivertebra. No definite vertebral body collapse or acute displaced fracture. Severe degenerative changes at the r ight side of L4 and the right hemilumbarized S1 with opposing endplate osteophytosis, markedly degene rative disc and subchondral sclerotic changes. Milder degenerative changes of the remainder of the abbey mbar spine with opposing endplate osteophytosis, slightly degenerated discs and multilevel facet oste oarthropathy, most evident at L3-4 and right L4 S1 facet. At T11-12 level: Posterior disc osteophyte complex most evident at the left paracentral location, cau sing mild central spinal canal stenosis without significant neural foraminal stenosis. At T12-L1 level: Bilateral posterior foraminal disc protrusions associated with facet arthropathy and posterior osteophytosis, causing no significant central spinal canal stenosis or significant neurofo raminal stenosis. At L1-2 level: Bilateral posterior foraminal disc protrusions associated with bilateral facet osteoar thropathy and posterior osteophytosis, causing mild central spinal canal stenosis and severe left jude roforaminal stenosis, compressing the left L1 nerve root. At L2-3 level: Degenerated disc with diffuse posterior disc bulge and focal left foraminal protrusion , associated with bilateral facet osteoarthropathy and mild congenital narrowing of the spinal canal, causing moderate central spinal canal stenosis and moderate to severe left neural foraminal stenosis compressing the left L2 nerve root. At L3-4 level: Mild diffuse to disc bulge associated with bilateral facet osteoarthropathy, causing n o significant central spinal canal stenosis, moderate right and [id number] left neural forami nal stenosis, compressing the corresponding L3 nerve root more on the left side. At L4-5-S1 level: Severe degenerative changes as described above with mild central spinal canal steno sis, large focal disc herniation and large osteophytosis encroaching on the neural foramen between th e right side of L4 and right side of S1, causing severe neural foraminal stenosis and severe compress ion of the right L4 and possibly right L5 nerve roots. Mild degenerative changes of the sequelae joints. No paraspinal lesion. IMPRESSION: Left L5 hemivertebra, right S1 hemilumbarization and advanced degenerative changes of the lumbar spin e causing multilevel neural foraminal stenosis and nerve root compression, most evident at the right L4-S1 neural foramen as detailed above. Recommend spine surgery/intervention consultation.
== END | disposition home or self-care (01) ==
LOC: RADCTMAIN 08:11
PROVIDERS: ATTEND Neurological Surgery
DX: M48.061 Spinal stenosis, lumbar region without neurogenic claudication (principal); Z98.1 Arthrodesis status; M47.816 Spondylosis without myelopathy or radiculopathy, lumbar region; M99.73 Connective tissue and disc stenosis of intervertebral foramina of lumbar region
CPT/HCPCS: 72131

== ENCOUNTER → 2021-04-03 | Outpatient (CLI) | payer OTHER ==
--- NOTE | 2021-04-03 11:49 | FL ---
Modified barium swallow. HISTORY: Dysphagia. Modified barium swallow was performed with the department of speech pathology. The patient was prese nted with various consistencies of barium. There is no evidence for aspiration or penetration. Full report is to follow from the department of speech pathology. Impression: Normal study.
== END | disposition home or self-care (01) ==
LOC: RADFLMAIN 10:37
PROVIDERS: ATTEND Family Medicine
DX: R13.19 Other dysphagia (principal)
CPT/HCPCS: 74230

== ENCOUNTER 2021-12-15 22:32 | Emergency (ER) | payer OTHER ==
[2021-12-15 22:38] VITALS: PULSE 100; RESP 18; TEMP 98.6
[2021-12-15] MEDS ORDERED: LIDOCAINE 1% INJ 10MG/ML (30 ML VIAL-PF) SQ ONE (22:47)
--- NOTE | 2021-12-15 22:53 | ED ---
Wound/Laceration HPI - General Chief Complaint: Wound/Laceration Stated Complaint: Left finger laceration Time Seen by Provider: 12/15/21 22:40 Source: patient Mode of arrival: ambulatory - History of Present Illness Initial Comments: Patient is a 56-year-old male presenting with laceration. Patient cut his left pinky finger with a knife. He reports minimal pain. Denies numbness and tingling. Last tetanus one year ago. - Related Data Home Medications Medication Instructions Recorded Confirmed Aspirin [Adult Low Dose Aspirin EC] 81 mg PO HS 10/27/19 11/27/19 amLODIPine [Norvasc] 5 mg PO HS 10/27/19 11/27/19 predniSONE [Deltasone] See Taper PO DAILY 11/28/19 11/28/19 Previous Rx's Medication Instructions Recorded Atorvastatin [Lipitor] 40 mg PO HS #90 tab 09/12/19 Clopidogrel [Plavix] 75 mg PO DAILY #30 tab 11/30/19 Famotidine [Pepcid] 20 mg PO BID #30 tablet 11/30/19 Allergies Allergy/AdvReac Type Severity Reaction Status Date / Time No Known Allergies Allergy Verified 12/15/21 22:38 Review of Systems ROS Statement: Those systems with pertinent positive or pertinent negative responses have been documented in the HPI. ROS Other: All systems not noted in ROS Statement are negative. Past Medical History Past Medical History: GERD/Reflux, Osteoarthritis (OA) Additional Past Medical History / Comment(s): Pt states since cervical surgery in Jun, 2019 he has had some upper abdominal pain/balance issues, vertigo. 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, 2019 History of Any Multi-Drug Resistant Organisms: None Reported Past Surgical History: Hernia Repair, Orthopedic Surgery Additional Past Surgical History / Comment(s): 06/24/19 cervical fusion C2-T2 with hardware done at [facility]-limited ROM with neck, bilateral carpal tunnel releases, L hand thumb tendon surgery, umbilical hernia repair, colonoscopy Past Anesthesia/Blood Transfusion Reactions: No Reported Reaction Past Psychological History: No Psychological Hx Reported Smoking Status: Never smoker Past Alcohol Use History: Occasional Past Drug Use History: None Reported - Past Family History Mother Family Medical History: Cancer Additional Family Medical History / Comment(s): Pacemaker, colon cancer, smoker. General Exam General appearance: alert, in no apparent distress Respiratory exam: Present: normal lung sounds bilaterally. Absent: respiratory distress, wheezes, rales, rhonchi, stridor Cardiovascular Exam: Present: regular rate, normal rhythm, normal heart sounds. Absent: systolic murmur, diastolic murmur, rubs, gallop, clicks Extremities exam: Present: other (2.5 cm laceration over dorsal left pinky finger across DIP joint. No tendon involvement. Neurovascularly intact. Full range of motion) Neurological exam: Present: alert, oriented X3, CN II-XII intact Psychiatric exam: Present: normal affect, normal mood Skin exam: Present: warm, dry, intact, normal color. Absent: rash Course Vital Signs 12/15/21 12/15/21 22:36 22:59 Temperature 98.6 F Pulse Rate 100 Respiratory 18 Rate Blood Pressure 158/102 147/101 Procedures - Laceration Laceration #1 Consent Obtained: verbal consent Indication: laceration Site: other (left pinky ) Depth: simple, single layer Anesthetic Used: lidocaine 1% Anesthesia Technique: nerve block Pre-repair: wound explored, irrigated extensively Type of Sutures: nylon Size of Sutures: 4-0 Number of Sutures: 6 Technique: simple, interrupted Patient Tolerated Procedure: well, no complications Medical Decision Making - Medical Decision Making This is a 56-year-old male presenting with laceration. Wound well proximal with 6 sutures. Patient tolerated procedure well without complications. Tetanus update not indicated. Wound care education discusssed detail. Blood pressure elevated at 158/102. Consistently elevated in the emergency department. Patient states blood pressure elevated in hospitals. Denies history of hypertension and has never taken a medication for high blood pressure. States he checks his blood pressure at home which is always in the 120-130s/80s. Patient to follow-up with primary care provider for further evaluation and management. Dr. Matthew is my attending. Disposition Clinical Impression: Laceration Disposition: HOME SELF-CARE Condition: Good Instructions (If sedation given, give patient instructions): Care For Your Stitches (ED), Laceration (ED) Additional Instructions: Leave wound uncovered. Keep wound clean and dry. Wash with a mild soap. Take Tylenol or anti-inflammatories such as Motrin for pain. Follow-up with primary care provider in 1-2 days. Return for suture removal in 7-10 days. Report back to the emergency department if you experience new, concerning, or worsening symptoms. Is patient prescribed a controlled substance at d/c from ED?: No Referrals: [facility],Clinic [Primary Care Provider] - 1-2 days Time of Disposition: 22:53
[2021-12-15 23:00] VITALS: BP 147/101
== END 2021-12-15 23:31 | disposition home or self-care (01) ==
LOC: EC 22:32
DX: S61.317A Laceration without foreign body of left little finger with damage to nail, initial encounter (principal); K21.9 Gastro-esophageal reflux disease without esophagitis; M19.90 Unspecified osteoarthritis, unspecified site; Z79.82 Long term (current) use of aspirin; Z79.899 Other long term (current) drug therapy; W26.0XXA Contact with knife, initial encounter
CPT/HCPCS: 99282; 12001; J2001

== ENCOUNTER → 2022-10-29 | Outpatient (CLI) | payer OTHER ==
--- NOTE | 2022-10-29 12:22 | MR ---
EXAMINATION TYPE: MR lumbar spine wo con DATE OF EXAM: 10/29/2022 COMPARISON: 09/14/19 HISTORY: Low back pain into buttocks and rt leg TECHNIQUE: Multiplanar, multisequence images of the lumbar spine were acquired without IV contrast. Curvature seen convex to the right. L1-L2: Mild to moderate disc desiccation with posterior disc bulge greatest paracentrally and to the left where there is mild left lateral recess stenosis. There is facet joint arthropathy with mild mumtaz ateral foraminal encroachment. L2-L3: Mild disc desiccation with minimal posterior disc bulge. Hypertrophic change left facet joints resulting in moderate left foraminal encroachment and left lateral recess stenosis. No evidence for central stenosis or disc herniation. L3-L4: Moderate disc desiccation with posterior disc bulge. There is hypertrophy of the ligamentum fl avum and facet joint arthropathy resulting in mild central stenosis. L4-L5: Mild to moderate disc desiccation with mild posterior disc bulge. No evidence of herniation or central stenosis. Moderate hypertrophic change right facet joints resulting in right lateral recess stenosis and right foraminal encroachment. L5-S1: Moderate to severe disc desiccation. Grade 1 anterolisthesis L5 on S1 measuring 5 mm. Degenera tive endplate marrow change. Posterior disc bulge. Lumbar segments are intact. No paraspinal masses are identified. Conus medullaris has a normal appe arance. IMPRESSION: 1. Multilevel degenerative disc disease with disc bulging and mild central stenosis at L3-4. Hypertro phic changes of the facet joints as discussed above.
== END | disposition home or self-care (01) ==
LOC: RADMRIMAIN 10:09 → MERGE 10:45
DX: M51.17 Intervertebral disc disorders with radiculopathy, lumbosacral region (principal); M48.061 Spinal stenosis, lumbar region without neurogenic claudication; M47.26 Other spondylosis with radiculopathy, lumbar region
CPT/HCPCS: 72148

== ENCOUNTER → 2022-12-06 | Outpatient (CLI) | payer OTHER ==
--- NOTE | 2022-12-06 11:53 | CT ---
EXAMINATION TYPE: CT lumbar spine wo con CT DLP: 1169.9 mGycm, Automated exposure control for dose reduction was used. DATE OF EXAM: 12/06/2022 10:54 AM COMPARISON: 04/01/2021. 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 Soft tissue and bone windows in coronal and sagittal planes were obtained and reviewed. Contrast used: none. Oral contrast used: none. FINDINGS: Alignment: Scoliosis changes to the spine with levoscoliosis apex L4 hemivertebrae and extra scoliosi s apex L2. Transitional L6 vertebrae with hemivertebrae at L5. Bone: No evidence of fracture is identified. There is a left hemivertebrae at L5 with transitional v ertebrae at L6 also present with rudimentary disc at L6-S1. There is no evidence of fracture. There i s degeneration changes with osteophyte formation and vacuum disc phenomenon and facet joint arthropat hy. Discs: T12-L1: No spinal canal or neural foraminal stenosis is identified. L1-L2: Facet joint arthropathy and disc bulging result with mild spinal canal stenosis and severe lef t and mild to moderate right neural foraminal stenosis. L2-L3: Facet joint arthropathy and disc bulging result with mild spinal canal stenosis and moderate l eft and mild right neural foraminal stenosis. L3-L4: Facet joint arthropathy and disc bulging result with moderate spinal canal stenosis and modera te bilateral neural foraminal stenosis. L4-L5: No spinal canal is patent. The left L4-L5 neural foramen is patent. The right L4-L6 demonstrat es severe spinal canal stenosis. L5-L6: Hemivertebrae of L5 with moderate neural foraminal stenosis. There is severe L4-L6 neural fora bernard stenosis given there is no vertebrae on that side L5. L6-S1: No spinal canal or neural foraminal rudimentary disc with mild to moderate right and no signif icant left neural foraminal stenosis. 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 Overall findings similar to prior 04/01/2021. There remains severe L4-L6 right neural foraminal stenosis (abs ence of the right L5 vertebrae at this level secondary to the left hemivertebrae). The L4-L5 and L5-L 6 left neural foramen are patent. Additional hemivertebrae results in scoliosis with neural foraminal stenosis as described above.
== END | disposition home or self-care (01) ==
LOC: RADCTMAIN 10:23
DX: Q76.49 Other congenital malformations of spine, not associated with scoliosis (principal); M47.816 Spondylosis without myelopathy or radiculopathy, lumbar region; M99.73 Connective tissue and disc stenosis of intervertebral foramina of lumbar region
CPT/HCPCS: 72131

== ENCOUNTER → 2023-09-08 | Outpatient (CLI) | payer OTHER ==
--- NOTE | 2023-09-08 13:02 | CT ---
EXAMINATION TYPE: CT lumbar spine wo con DATE OF EXAM: 09/08/2023 COMPARISON: 12/06/2022 HISTORY: 57-year-old male low back pain TECHNIQUE: Contiguous axial scanning of the lumbar spine without IV contrast. Coronal and sagittal re constructions performed. CT DLP: 1051 mGycm Automated exposure control for dose reduction was used. FINDINGS: There is S-shaped scoliosis of the lumbar spine secondary to transitional lumbosacral segment denoted as L6 (which shows left sided hemisacralization, numbering kept from the 12/06/2022 exam) and a left L5 hemivertebra. There is sharp angulation of L4 onto L6 with right-sided vertebral corner bone-on-b one abutment with associated bony remodeling and sclerosis. Slight right lateral subluxation L3 on L4 and L2 on L3 due to the curvature. Trace grade 1 retrolisth esis L1-L2. Additional moderate to severe degenerative disc disease especially towards the left at L1-L2 and L2-L 3. Moderate degenerative disc disease T12-L1. Advanced hypertrophic facet arthropathy throughout especially mid to lower lumbar spine. Vertebral body heights are preserved. At T11-T12, posterior disc bulge and ligamentum flavum thickening and calcification contribute to mil d spinal canal stenosis. At T12-L1, there is a left paracentral disc osteophyte complex without significant canal stenosis. At L1-L2, there is a left paracentral disc protrusion encroaching onto the left lateral recess. Facet arthropathy with mild circumferential attenuation of the thecal sac but no significant spinal canal stenosis. At L2-L3, diffuse disc bulge and some ligamentum flavum calcification contribute to mild spinal canal stenosis. At L4-L5, diffuse disc bulge without significant spinal canal stenosis. On the right, changes of resultant severe neuroforaminal canal stenosis at L4-L5 and L5-L6. Mild to m oderate at L3-L4. Moderate at T10-T11. On the left, changes of the abdomen moderate to severe neuroforaminal stenosis at L3-L4. Moderate at T10-T11, L1-L2, and L2-L3. IMPRESSION: 1. SEGMENTATION ANOMALY WITH A LEFT L5 HEMIVERTEBRA RESULTING IN A SHARP SCOLIOSIS. THERE IS ALSO TRA NSITIONAL LUMBOSACRAL SEGMENT. WE ARE ADOPTING THE NUMBERING USED ON THE 12/06/2022 EXAM WHERE THIS W DENOTED AN L6 VERTEBRAL BODY WITH LEFT HEMISACRALIZATION. 2. MODERATE MULTILEVEL DEGENERATIVE DISC DISEASE. [id number] ABUTMENT WITH REACTIVE SCLEROSIS OF TH E RIGHT-SIDED L4 AND L6 VERTEBRAL BODY CORNERS DUE TO THE L5 HEMIVERTEBRA. 3. MODERATE TO ADVANCED MULTILEVEL FACET ARTHROPATHY. DEGENERATIVE TRACE GRADE 1 RETROLISTHESIS L1-L2 . 4. MILD SPINAL CANAL STENOSIS AT T11-T12 AND L2-L3. LEFT PARACENTRAL DISC PROTRUSION AT L1-L2 ENCROAC HES ONTO THE LEFT LATERAL RECESS. 5. ADDITIONAL CHANGES RESULT IN SEVERE RIGHT-SIDED NEURAL FORAMINAL STENOSIS AT L4-L5 AND L5-L6. MODE RATE TO SEVERE ON THE LEFT AT L3-L4. MODERATE AT ADDITIONAL LEVELS OUTLINED ABOVE. 6. COMPARED TO THE PRIOR EXAM, THE DEGREE OF DEGENERATIVE DISC DISEASE SHOWS SLIGHT PROGRESSION. THE LEFT PARACENTRAL DISC PROTRUSION AT L1-L2 APPEARS LARGER.
--- NOTE | 2023-09-08 14:00 | MR ---
EXAMINATION TYPE: MR lumbar spine wo con DATE OF EXAM: 09/08/2023 COMPARISON: 10/29/2022 HISTORY: Low back pain, Rt leg numbness TECHNIQUE: Multiplanar, multisequence images of the lumbar spine were acquired without IV contrast. L1-L2: Mild disc desiccation with left paracentral disc bulge or focal protrusion. Mild effacement ve ntral thecal sac without evidence for cord contact or central stenosis. Mild degenerative narrowing b ilateral neural foramina. Facet joint arthropathy. L2-L3: Mild to moderate disc desiccation with left paracentral disc bulge. Left foraminal encroachmen t and facet joint arthropathy. No evidence for herniation or central stenosis. L3-L4: Moderate disc desiccation with circumferential disc bulge. Hypertrophy ligamentum flavum and f acet joint arthropathy resulting in mild central stenosis and mild bilateral foraminal encroachment. L4-L5: Moderate disc desiccation with mild posterior disc bulge. Hypertrophic changes of the right fa cet joint resulting in moderate right-sided foraminal encroachment. No evidence for central stenosis. L5-S1: Severe disc desiccation with posterior disc bulge. Effacement ventral thecal sac without evide nce for central stenosis. Degenerative endplate marrow change. Ventral spondylosis. Bilateral foramin al encroachment mild in degree. Lumbar segments are intact. No paraspinal masses are identified. Conus medullaris has a normal appe arance. Scoliosis moderate degree convex to the right. Rudimentary S1-S2 disc. IMPRESSION: 1. Multilevel degenerative disc disease with disc bulging and foraminal encroachment as outlined eleanor de la cruz
== END | disposition home or self-care (01) ==
LOC: RADCTMAIN 11:44
PROVIDERS: ATTEND Family Medicine
DX: M47.816 Spondylosis without myelopathy or radiculopathy, lumbar region (principal); M51.36 Other intervertebral disc degeneration, lumbar region; M43.16 Spondylolisthesis, lumbar region; M51.26 Other intervertebral disc displacement, lumbar region; M99.73 Connective tissue and disc stenosis of intervertebral foramina of lumbar region
CPT/HCPCS: 72131; 72148

== ENCOUNTER 2023-12-22 15:19 | Emergency (ER) | payer OTHER ==
[2023-12-22 15:28] VITALS: RESP 18
--- NOTE | 2023-12-22 16:16 | ED ---
Extremity Problem HPI - General Chief complaint: Extremity Problem,Nontraumatic Stated complaint: L foot swelling Time Seen by Provider: 12/22/23 15:36 Source: patient, RN notes reviewed Mode of arrival: wheelchair Limitations: no limitations - History of Present Illness Initial comments: This is a 58-year-old male presenting with left foot edema for nearly 2 months. Patient endorses receiving surgery for lumbar fusion on October 28 with subsequent swelling of his left foot. Patient states he has attempted water pills and elevation with transient relief of swelling. Patient endorses associated nerve pain and numbness in the foot since that time. Patient denies dyspnea, chest pain, cough, color changes. MD Complaint: extremity swelling Onset/Timin -: week(s) Location: left, lower extremity - Related Data Home Medications Medication Instructions Recorded Confirmed Aspirin [Adult Low Dose Aspirin EC] 81 mg PO HS 10/27/19 11/27/19 amLODIPine [Norvasc] 5 mg PO HS 10/27/19 11/27/19 predniSONE [Deltasone] See Taper PO DAILY 11/28/19 11/28/19 Previous Rx's Medication Instructions Recorded Atorvastatin [Lipitor] 40 mg PO HS #90 tab 09/12/19 Clopidogrel [Plavix] 75 mg PO DAILY #30 tab 11/30/19 Famotidine [Pepcid] 20 mg PO BID #30 tablet 11/30/19 Allergies Allergy/AdvReac Type Severity Reaction Status Date / Time No Known Allergies Allergy Verified 12/22/23 15:24 Review of Systems ROS Statement: Those systems with pertinent positive or pertinent negative responses have been documented in the HPI. ROS Other: All systems not noted in ROS Statement are negative. Past Medical History Past Medical History: GERD/Reflux, Osteoarthritis (OA) Additional Past Medical History / Comment(s): Pt states since cervical surgery in Jun, 2019 he has had some upper abdominal pain/balance issues, vertigo. 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, 2019 History of Any Multi-Drug Resistant Organisms: None Reported Past Surgical History: Hernia Repair, Orthopedic Surgery Additional Past Surgical History / Comment(s): 06/24/19 cervical fusion C2-T2 with hardware done at [facility]-limited ROM with neck, bilateral carpal tunnel releases, L hand thumb tendon surgery, umbilical hernia repair, colonoscopy Past Anesthesia/Blood Transfusion Reactions: No Reported Reaction Past Psychological History: No Psychological Hx Reported Smoking Status: Never smoker Past Alcohol Use History: Occasional Past Drug Use History: None Reported - Past Family History Mother Family Medical History: Cancer Additional Family Medical History / Comment(s): Pacemaker, colon cancer, smoker. General Exam - General Exam Comments Initial Comments: Visual Physical Exam Vital signs reviewed General: Well-appearing, nontoxic, no acute distress. Patient seated in wheelchair. Head: Normocephalic, atraumatic Eyes: PERRLA, EOMI ENT: Airway patent Chest: Nonlabored breathing Skin: No visual rash, normal skin tone Neuro: Alert and oriented 3 Musculoskeletal: No gross abnormalities Limitations: no limitations General appearance: alert, in no apparent distress Head exam: Present: atraumatic, normocephalic, normal inspection Eye exam: Present: normal appearance, PERRL, EOMI. Absent: scleral icterus, conjunctival injection, periorbital swelling ENT exam: Present: normal exam, mucous membranes moist Neck exam: Present: normal inspection. Absent: tenderness, meningismus, lymphadenopathy Respiratory exam: Present: normal lung sounds bilaterally. Absent: respiratory distress, wheezes, rales, rhonchi, stridor Cardiovascular Exam: Present: regular rate, normal rhythm, normal heart sounds. Absent: systolic murmur, diastolic murmur, rubs, gallop, clicks GI/Abdominal exam: Present: soft, normal bowel sounds. Absent: distended, tenderness, guarding, rebound, rigid Extremities exam: Present: normal inspection, full ROM, normal capillary refill, pedal edema (Positive left lower extremity pedal edema especially foot and ankle, extending to the knee. Neurovascular intact, dorsalis pedis pulse +2. Negative erythema or stasis dermatitis.). Absent: tenderness, joint swelling, calf tenderness Back exam: Present: normal inspection Neurological exam: Present: alert, oriented X3, CN II-XII intact Psychiatric exam: Present: normal affect, normal mood Skin exam: Present: warm, dry, intact, normal color. Absent: rash Course Vital Signs 12/22/23 12/22/23 15:25 17:47 Temperature 98.3 F 98.2 F Pulse Rate 103 H 96 Respiratory 18 18 Rate Blood Pressure 129/82 129/86 O2 Sat by Pulse 97 96 Oximetry Medical Decision Making - Medical Decision Making Was pt. sent in by a medical professional or institution (, PA, ASSEMBLER [employer]LL[employer]IDER, urgent care, hospital, or fci...) When possible be specific @ -No Did you speak to anyone other than the patient for history (EMS, parent, family, police, friend...)? What history was obtained from this source @ -No Did you review nursing and triage notes (agree or disagree)? Why? @ -I reviewed and agree with nursing and triage notes Were old charts reviewed (outside hosp., previous admission, EMS record, old EKG, old radiological studies, urgent care reports/EKG's, fci records)? Report findings @ -No old charts were reviewed Differential Diagnosis (chest pain, altered mental status, abdominal pain women, abdominal pain men, vaginal bleeding, weakness, fever, dyspnea, syncope, headache, dizziness, GI bleed, back pain, seizure, CVA, palpatations, mental health, musculoskeletal)? @ -DVT, cellulitis, stasis dermatitis, lymphedema, this is not an exhaustive list. EKG interpreted by me (3pts min.). @ -Not done X-rays interpreted by me (1pt min.). @ -None done CT interpreted by me (1pt min.). @ -None done U/S interpreted by me (1pt. min.). @ -Left lower extremity Doppler venous ultrasound reveals no acute DVT. What testing was considered but not performed or refused? (CT, X-rays, U/S, labs)? Why? @ -None What meds were considered but not given or refused? Why? @ -None Did you discuss the management of the patient with other professionals (professionals i.e. , PA, ASSEMBLER [employer]ER, lab, RT, psych nurse, social media community manager, sewer builder, teacher, chief safety officer, mattress spring encaser)? Give summary @ -No Was smoking cessation discussed for >3mins.? @ -No Was critical care preformed (if so, how long)? @ -No Were there social determinants of health that impacted care today? How? (Homelessness, low income, unemployed, alcoholism, drug addiction, transportation, low edu. Level, literacy, decrease access to med. care, residential, rehab)? @ -No Was there de-escalation of care discussed even if they declined (Discuss DNR or withdrawal of care, Hospice)? DNR status @ -No What co-morbidities impacted this encounter? (DM, HTN, Smoking, COPD, CAD, Cancer, CVA, ARF, Chemo, Hep., AIDS, mental health diagnosis, sleep apnea, morbid obesity)? @ -None Was patient admitted / discharged? Hospital course, mention meds given and route, prescriptions, significant lab abnormalities, going to OR and other pertinent info. @ -Discharge. Doppler ultrasound reveals no acute DVT. Patient provided paper prescription for compression stocking. Advised compression and elevation to reduce edema. Undiagnosed new problem with uncertain prognosis? @ -No Drug Therapy requiring intensive monitoring for toxicity (Heparin, Nitro, Insulin, Cardizem)? @ -No Were any procedures done? @ -No Diagnosis/symptom? @ -Lymphedema Acute, or Chronic, or Acute on Chronic? @ -Acute Uncomplicated (without systemic symptoms) or Complicated (systemic symptoms)? @ -Uncomplicated Side effects of treatment? @ -No Exacerbation, Progression, or Severe Exacerbation? @ -No Poses a threat to life or bodily function? How? (Chest pain, USA, MA, pneumonia, PE, COPD, DKA, ARF, appy, cholecystitis, CVA, Diverticulitis, Homicidal, Suicidal, threat to staff... and all critical care pts) @ -No Disposition Clinical Impression: Lymphedema Disposition: HOME SELF-CARE Condition: Good Instructions (If sedation given, give patient instructions): Lymphedema (ED) Is patient prescribed a controlled substance at d/c from ED?: No Referrals: Irma Pedro PAC [Primary Care Provider] - 1-2 days Time of Disposition: 17:14
--- NOTE | 2023-12-22 16:58 | US ---
EXAMINATION TYPE: US venous doppler duplex LE LT DATE OF EXAM: 12/22/2023 4:14 PM COMPARISON: NONE CLINICAL INDICATION: Male, 58 years old with history of Postsurgical pedal edema x7 weeks; Left ankle edema x 7 weeks after lumbar surgery., TECHNIQUE: The lower extremity deep venous system is examined utilizing real time linear array sonog luis alberto with graded compression, color doppler sonography, and spectral doppler. SIDE PERFORMED: Left FINDINGS: VESSELS IMAGED: Common Femoral Vein Deep Femoral Vein Greater Saphenous Vein * Femoral Vein Popliteal Vein Small Saphenous Vein * Proximal Calf Veins (* superficial vessels) Left Leg: Negative for DVT, Color Doppler imaging shows patency of the vessels. Spectral waveforms a re within normal limits. IMPRESSION: 1. Left lower chest on the ultrasound negative for deep venous thrombosis. [facility], , 12/22/2023 4:56 PM
[2023-12-22 17:48] VITALS: BP 129/86; PULSE 96; TEMP 98.2
== END 2023-12-22 17:49 | disposition home or self-care (01) ==
LOC: EC 15:19
DX: I89.0 Lymphedema, not elsewhere classified (principal)
CPT/HCPCS: 99283

== ENCOUNTER → 2023-12-26 | Outpatient (CLI) | payer OTHER ==
--- NOTE | 2023-12-26 17:10 | CT ---
EXAMINATION TYPE: CT lumbar spine wo con CT DLP: 1456.20 mGycm, Automated exposure control for dose reduction was used. DATE OF EXAM: 12/26/2023 9:50 AM COMPARISON: CT lumbar spine 09/08/2023, 12/06/2022, MRI lumbar spine 09/08/2023. CLINICAL INDICATION:Male, 58 years old with history of M48.062 L STENOSIS; PHH, Lumbar stenosis, rece nt surgery in October, back pain, immobility. TECHNIQUE: Multiple axial images were obtained from the midportion of T11 through the sacroiliac rene nts. Soft tissue and bone windows in coronal and sagittal planes were obtained and reviewed. Contrast used: none. Oral contrast used: none. FINDINGS: Interval postsurgical changes with bilateral pedicular screws and rods involving T12 through L6. [place]ruz ace appears intact with proper alignment. There are laminectomy changes identified at L2 through L6. S-shaped scoliosis redemonstrated of the lumbar spine secondary to transitional lumbosacral segment t here is L6. There is left-sided hemisacralization and a left L5 hemivertebrae. Sharp angulation of L4 on to L6 is a right-sided vertebral quadrant [id number] abutment with associated bony remodeling r edemonstrated. No evidence of fracture is identified. There is degeneration changes with osteophyte formation and va cuum disc phenomenon and facet joint arthropathy. Discs: T11-T12: Calcification of a minimal broad-based disc bulge without significant effacement of the ante rior thecal sac. No significant neural foraminal stenosis. T12-L1: Calcification of a small left paracentral disc protrusion without significant effacement of a nterior thecal sac. No significant neural foraminal stenosis. L1-L2: Postsurgical changes without significant central canal stenosis. Bilateral facet arthropathy w ith severe left and [id number] right neural foraminal stenosis. L2-L3: Postsurgical changes without significant central canal stenosis. Bilateral facet arthropathy w ith moderate left and mild right neural foraminal stenosis. L3-L4: Post surgical changes without significant central canal stenosis. Bilateral facet arthropathy with moderate bilateral neuroforaminal stenosis. L4-L5: Postsurgical changes without significant central canal stenosis. The left L4-L5 neural foramen is patent. The right L4-L6 demonstrates severe neural foraminal stenosis. L5-L6: Postsurgical changes. Hemivertebrae of L5 with moderate neural foraminal stenosis. There is se sylvia L4-L6 neural foraminal stenosis. L6-S1: Postsurgical changes. No spinal canal or neural foraminal rudimentary disc with mild to modera te right and no significant left neural foraminal stenosis. Other: Small hiatal hernia. Right renal hypodense 1.5 cm lesion which probably represents a cyst. Sig moid diverticulosis. IMPRESSION: 1. Postsurgical changes from posterior fusion T12 through L6. Hardware appears intact with appropria te alignment. No significant central canal stenosis. 2. Redemonstration S-shaped scoliotic curvature with anatomic variant transitional hemivertebrae at L5 to the left with transitional L6 vertebrae. Varying degrees of similar neural foraminal stenosis a s described above. [facility], , 12/26/2023 5:08 PM
== END | disposition home or self-care (01) ==
LOC: RADCTMAIN 09:26
PROVIDERS: ATTEND Neurological Surgery
DX: M48.062 Spinal stenosis, lumbar region with neurogenic claudication (principal); M48.061 Spinal stenosis, lumbar region without neurogenic claudication; Z98.1 Arthrodesis status
CPT/HCPCS: 72131

== ENCOUNTER → 2024-01-19 | Outpatient (CLI) | payer OTHER ==
--- NOTE | 2024-01-20 16:54 | MR ---
EXAMINATION TYPE: MR lumbar spine wo con DATE OF EXAM: 01/19/2024 4:31 PM COMPARISON: 09/08/2023 CLINICAL INDICATION: Male, 58 years old with history of [place]ER[place] AND BLACK FLANNEL AND BLACK HAT, Lower b ack Pain, Numbness down left leg TECHNIQUE: Multiplanar, multisequence images of the lumbar spine were acquired. IV Contrast: mL (None, if empty) FINDINGS: Cord ends level cannot be identified. L5-S1: No focal disc herniation or significant disc bulge. No spinal canal stenosis. Neural foramen are patent. Remaining portions examination are limited due to the susceptibility artifact compatible screws. L4-L5: No obvious AP stenosis. L3-L4: No obvious AP stenosis. Extremely limited. L2-L3: Nondiagnostic L1-L2: Nondiagnostic T12-L1: Nondiagnostic T11-T12: Minimal left paracentral disc bulge may be present within the thecal sac contact. Close appr oximation spinal cord. Facet hypertrophy is present. IMPRESSION: 1. Essentially nondiagnostic MRI lumbar spine. [facility], , 01/20/2024 4:51 PM
== END | disposition home or self-care (01) ==
LOC: RADMRIMAIN 15:35
PROVIDERS: ATTEND Neurological Surgery
DX: Z09 Encounter for follow-up examination after completed treatment for conditions other than malignant neoplasm (principal); M54.50 Low back pain, unspecified; R20.2 Paresthesia of skin
CPT/HCPCS: 72148